=== PATIENT | male | born 1935 | race Caucasian/White ===

== ENCOUNTER → 2016-03-16 | Outpatient (REF) | payer MEDICARE ==
[~2016-03-16] MED LIST: ALLO10TA PO; ASPI1TAB PO; CEPH500C PO; DOXY10CA PO; FLOM5CAP PO; HUMA75VL SC; INSUHUMDS SC; LASI20TA PO; LISI40TAB PO; METO50TA2 PO; ONGL1TAB9 PO; PRED20TA PO
[2016-03-16 15:50] LABS: CREATININE FOR GFR 1.89 MG/DL (0.70-1.30); GLOMERULAR FILTRATION RATE 36.6 (>35); POTASSIUM SERUM 4.7 MEQ/L (3.5-5.1)
== END ==
LOC: M SFHCLACO 09:27
PROVIDERS: ATTEND Physician Assistant
DX: E11.40 Type 2 diabetes mellitus with diabetic neuropathy, unspecified (principal); E11.22 Type 2 diabetes mellitus with diabetic chronic kidney disease; N18.3 Chronic kidney disease, stage 3 (moderate); I12.9 Hypertensive chronic kidney disease with stage 1 through stage 4 chronic kidney disease, or unspecified chronic kidney disease

== ENCOUNTER 2016-03-29 10:39 | Inpatient (IN) | payer MEDICARE ==
[~2016-03-29] VITALS: Ht 172.7 cm; Wt 108.0 kg
[2016-03-29 12:29] LABS: CALCIUM LEVEL 9.2 MG/DL (8.8-10.2); CREATININE FOR GFR 1.86 MG/DL (0.70-1.30); GLOMERULAR FILTRATION RATE 37.3 (>35); POTASSIUM SERUM 4.5 MEQ/L (3.5-5.1); URIC ACID 9.3 MG/DL (3.5-7.2)
--- NOTE | 2016-03-29 12:46 | REP ---
Left upper extremity duplex Doppler venous ultrasound. Real time compression and duplex Doppler evaluation of the left upper extremity deep venous system is performed. The left subclavian, jugular, axillary, brachial, basilic and cephalic veins are fully compressible where accessible with transducer pressure, and demonstrate no intraluminal thrombus and normal venous waveforms. There is no evidence of deep venous thrombosis. Impression: No evidence of deep venous thrombosis of the left upper extremity deep vein system. Signed by Tres Hall MD 03/29/2016 12:38 P
[2016-03-29 12:47] LABS: BASO # 0.2 K/mm3 (0.0-0.2); BASO % 1.1 % (0.0-1.0); EOS # 0.1 K/mm3 (0.0-0.50); EOS % 0.8 % (0.0-3.0); LARGE UNSTAINED CELL # 0.2 K/mm3 (0.0-0.4); LARGE UNSTAINED CELL % 1.1 % (0.0-4.0); LYMPH # 1.8 K/mm3 (1.5-4.5); LYMPH % 9.5 % (24.0-44.0); MEAN CORPUSCULAR HEMOGLOBIN 30.7 pg (27.0-33.0); MEAN CORPUSCULAR HGB CONC 33.5 g/dl (32.0-36.5); MEAN CORPUSCULAR VOLUME 91.8 fl (80.0-96.0); MONO # 1.3 K/mm3 (0.0-0.8); MONO % 7.7 % (0.0-5.0); NEUTROPHILS # 13.4 K/mm3 (1.8-7.7); NEUTROPHILS % 79.8 % (36.0-66.0); PLATELET COUNT, AUTOMATED 381 k/mm3 (150-450); RED CELL DISTRIBUTION WIDTH 13.7 % (11.5-14.5); WHITE BLOOD COUNT 16.8 K/mm3 (4.0-10.0)
[2016-03-29] MEDS ORDERED: CEFTAROLINE FOSAMIL 600 MG VIAL (TEFLARO) As Ordered ONE (12:58)
[2016-03-29] MEDS ORDERED: CEPH500C PO (13:10)
[2016-03-29] MEDS ORDERED: LASI20TA PO (13:12)
[2016-03-29] MEDS ORDERED: ASPI1TAB PO (13:12)
[2016-03-29] MEDS ORDERED: LISI40TAB PO (13:12)
[2016-03-29] MEDS ORDERED: FLOM5CAP PO (13:12)
[2016-03-29] MEDS ORDERED: METO50TA2 PO (13:12)
[2016-03-29] MEDS ORDERED: ONGL1TAB9 PO (13:12)
[2016-03-29] MEDS ORDERED: INSUHUMDS SC (13:14)
[2016-03-29] MEDS ORDERED: HUMA75VL SC (13:14)
[2016-03-29 13:40] LABS: ERYTHROCYTE SEDIMENTATION RATE 107 mm/hr (0-20)
--- NOTE | 2016-03-29 14:05 | REP ---
LEFT HAND SERIES: Four views. HISTORY: Infection, soft tissue swelling. No comparison radiographs. FINDINGS: Four views of the left hand demonstrate diffuse soft tissue swelling of the wrist, metacarpal region, and digits. No soft tissue gas is seen. There is vascular calcification in the distal radial artery at the wrist. 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 IMPRESSION: Diffuse marked soft tissue swelling. No soft tissue gas, opaque foreign body, or fracture. No acute bony abnormality. Signed by Alex Bonilla MD 03/29/2016 03:19 P
[2016-03-29] MEDS ORDERED: ONDANSETRON 4MG/2ML VIAL (J2405) IV PRN (14:30)
[2016-03-29] MEDS ORDERED: DEXTROSE 50% 50 ML SYRINGE IV PRN (15:00)
[2016-03-29] MEDS ORDERED: GLUCAGON FOR INJ 1 MG VIAL (J1610) SC PRN (15:00)
[2016-03-29] MEDS ORDERED: GLUCOSE 4 GM CHEW TABLET PO PRN (15:00)
--- NOTE | 2016-03-29 15:23 | HPE ---
DATE OF ADMISSION: 03/29/2016 PRIMARY CARE PROVIDER: Natalie Arnold NP CHIEF COMPLAINT: Left hand swelling. HISTORY OF PRESENT ILLNESS: The patient is an 80-year-old left-handed male who tells me that over the last three weeks he has had progressive worsening swelling of his left hand. He did inform his primary care provider of this and she did start him on cephalexin, however, he has not noted any significant improvement over the several days of being on that medication, denies fevers, chills, sick contacts, trauma. He denies any change in exposures or activities. He does tell me that he does have a bump on the medial aspect of his left wrist, but otherwise there have been no other changes. He denies any previous episodes related to this. He denies any tick exposures or being outdoors significantly. He has not history of urticaria or angioedema. He is on an angiotensin-converting enzyme (REESE) inhibitor but has been on this for many years. Otherwise, he is in his usual state of elan. He complains of this pain with decreased range of motion secondary to significant swelling. 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 Hypertension. Benign prostatic hypertrophy (BPH). PAST SURGICAL HISTORY: None. SOCIAL HISTORY: The patient denies smoking, alcohol or illicit drug use. He lives alone. He is retired. He tells me that he does not use his left hand for any repetitive activities. HOME MEDICATIONS: - cephalexin 500 mg by mouth twice a day - lispro 75/25 27 units twice a day - lisinopril 40 mg daily - Onglyza 5 mg daily - aspirin 81 mg daily - Lasix 20 mg daily - lispro 27 units twice a day - metoprolol tartrate 50 mg daily - tamsulosin 0.4 mg daily FAMILY HISTORY: Noncontributory. REVIEW OF SYSTEMS: Negative, other than HPI. ALLERGIES: No known drug allergies. PHYSICAL EXAMINATION: Blood pressure 133/69, pulse 72, respiratory rate 18, temperature 97.2, O2 saturation 98% on room air. GENERAL: He is a very pleasant elderly man sitting in a chair. He is in no distress whatsoever. HEENT: Cranial nerves II through XII are grossly intact. He has moist mucous membranes. No elevation of his central venous pressure (CVP). CARDIOVASCULAR: S1, S2, regular. RESPIRATORY: Clear. ABDOMEN: Obese. EXTREMITIES: There is no peripheral edema in his right upper extremity or bilateral lower extremities, however, his left hand is grossly edematous. There appears to be soft rubbery 1 cm x 0.50 cm mildly mobile lateral ventral aspect of the wrist, possibly cystic in nature. Otherwise, 2+ edema to the hand. No erythema, warmth. There is tenderness, decreased range of motion secondary to pain. The patient has good pulses. LABORATORY STUDIES: WBC 16.8, hemoglobin 13.4, hematocrit 39.9, platelet count 381. Erythrocyte sedimentation rate 107. Chemistry panel: Sodium 141, potassium 4.5, chloride 106, bicarbonate 23, BUN 33, creatinine 1.8, approximately his baseline. CRP 18.1. Lyme IgM is pending. Blood culture is currently pending. The patient did have a hand x-ray that revealed diffuse marked soft tissue swelling. No soft tissue gas, opaque foreign bodies or fracture. No acute bony abnormality. The patient also did have a duplex ultrasound of the left lower extremity that revealed no evidence of deep venous thrombosis (DVT). ASSESSMENT AND PLAN: This is an 80-year-old man with slowly progressing edema to the left hand for the last three weeks. PROBLEM LIST: 1. Left hand edema. The etiology remains unclear. I am less suspicious for an infectious etiology despite the patient's leukocytosis. There is no warmth and the clinical course is not suggestive of this either. I am more interested in a ganglion cyst obstructing lymphatic flow versus some other pathology. I have the patient seen in consultation by orthopedic surgery. Will check MRI with and without contrast of the hand and wrist. Edema is pitting in nature. There is no evidence of DVT. It does not appear to be angioedema, however, for the time being I will withhold the patient's lisinopril. I will empirically cover him with antibiotics while we await culture data. He has not received Methicillin-resistant Staphylococcus aureus (MRSA) coverage and as such he has been started on ceftaroline in the ER, which I will continue. We will keep the hand elevated. 2. Hypertension. The patient will be continued on his Lasix, metoprolol. We are holding his lisinopril. 3. Benign prostatic hypertrophy (BPH). The patient is on Flomax. 4. Type 2 diabetes. The patient is on insulin. Will be checking fingersticks and sliding scale. He is on aspirin. 5. DVT prophylaxis. The patient will be on heparin. DISPOSITION: The patient admitted to the medical-surgical floor to Dr. Bateman's service who will continue following the patient at 7:00 a.m. tomorrow.
[2016-03-29 16:59] VITALS: BP 124/69
--- NOTE | 2016-03-29 17:01 | EDDOCDS ---
Nurse's Notes [facility] Name: Javan Park Age: 80 yrs Sex: Male : 1935 Arrival Date: 03/29/2016 Time: 10:39 Bed MRI Private MD: Natalie Pop PA-C Diagnosis: Cellulitis of left upper limb Presentation: 03/29 10:42 Presenting complaint: Patient states: Pt presents with left hand swelling x 2 weeks saw dls PMD got a shot not improving. Adult Sepsis Screening: The patient does not have new or worsening altered mentation. Patient's respiratory rate is less than 22. Systolic blood pressure is greater than 100. Patient has a qSOFA score of 0- Negative Sepsis Screen. Suicide/Homicide risk assessment- the patient denies having any suicidal and/or homicidal ideations and does not present with any other emotional, behavioral or mental health complaints. Status: Patient is not a litigation services manager or dependent. Transition of care: patient was not received from another setting of care. 10:42 Acuity: PATRICIA Level 3 dls 10:42 Method Of Arrival: Walkin/Carried/Asstd dls Triage Assessment: 10:44 General: Appears in no apparent distress, well developed, Behavior is cooperative. dls Pain: Pain currently is 8 out of 10 on a pain scale. Historical: - Allergies: no known allergies; - Home Meds: 1. cephalexin 500 mg Oral tab 1 tab every 12 hours on day 3 2. tamsulosin 0.4 mg oral cp24 1 cap once daily 3. lisinopril 40 mg Oral tab 1 tab once daily 4. Lasix 20 mg Oral tab 1 tab once daily 5. metoprolol tartrate 50 mg Oral tab once daily 6. Onglyza 5 mg oral tab 1 tab once daily 7. Humalog Mix 75-25 Sub-Q 20 unit daily 8. humalog 100 units/ml 20 units twice daily - PMHx: Diabetes - NIDDM: controlled; Hypertension; BPH; - PSHx: none; - Social history: Smoking status: Patient/guardian denies using No barriers to communication noted, The patient speaks fluent Romansh. - Family history: Not pertinent. - : The pt / caregiver states he / she is not on anticoagulants. Home medication list is obtained from the patient. - Exposure Risk Screening:: None identified. Screenin:11 Screening information is obtained from the patient. Fall risk: No risks identified. kr3 Assistance ADL's: requires no assistance with activities of daily living. Abuse/DV Screen: The patient / caregiver reports he/she is: not in a situation that causes fear, pain or injury. Nutritional screening: On diabetic diet. Advance Directives: Currently, there is no health care proxy. There is no active DNR order. There is no Power of Ore Digger. home support is adequate. Assessment: 11:53 Reassessment: Patient appears in no apparent distress at this time. Pain: Location: kr3 left hand Pain currently is 8 out of 10 on a pain scale. Neurological: Level of Consciousness is awake, alert. Respiratory: Respiratory effort is even, unlabored. Derm: Swollen area noted on left hand. Musculoskeletal: Range of motion limited in left hand. 12:30 Reassessment: patient in UL. kr3 13:09 Reassessment: Patient appears in no apparent distress at this time. speaking with kr3 provider Dayna. 14:09 Reassessment: Patient appears in no apparent distress at this time. Reassessment: aware kr3 plan is for MRI. General: Behavior is cooperative. 15:30 Reassessment: patient remains in MRI. kr3 16:58 Reassessment: returns from MRI. No change in status. pain and swelling left hand with kr3 minimal ROM digits left hand. Respiratory: Respiratory effort is even, unlabored. 16:58 General: Appears returned from MRI left hand remains swollen and painful 6/10. sl jmk intact to right upper ext. admitted.. Vital Signs: 10:40 BP 133 / 69; Pulse 72; Resp 18 S; Temp 97.2(O); Pulse Ox 98% on R/A; Weight 111.13 kg dd6 (R); Height 5 ft. 8 in. (172.72 cm) (R); 14:48 BP 119 / 66; Pulse 62; Resp 16; Temp 98(O); Pulse Ox 98% on R/A; Pain 6/10; kr3 16:57 BP 124 / 69; Pulse 90; Resp 16; Temp 97.3; Pulse Ox 98% on R/A; jmk 10:40 Body Mass Index 37.25 (111.13 kg, 172.72 cm) dd6 Vitals: 10:40 Log In Time: March 29, 2016 at 10:38. dd6 ED Course: 10:40 Patient visited by Ramez Arroyo PCA. dd6 10:40 Natalie Pop is Private Physician. dd6 10:40 Patient moved to Waiting dd6 10:41 Patient moved to Pre RCE dd6 10:43 Triage Initiated dls 10:45 Patient moved to Triage 1 dls 11:23 Alex Fofana PA is PHCP. mo1 11:23 Francisco Danielson MD is Attending Physician. mo1 11:39 Patient visited by Alex Fofana PA. mo1 11:40 Patient moved to I6 / 28 ar3 11:45 Patient visited by Alex Fofana PA. mo1 11:52 Lyme Disease Antibodies Sent. kr3 11:52 Uric Acid Sent. kr3 11:52 CRP Sent. kr3 11:52 ESR Sent. kr3 11:52 BMP Sent. kr3 11:52 CBC with Diff Sent. kr3 11:52 -Blood Culture Sent. kr3 11:52 Inserted saline lock: 20 gauge in right forearm and blood collected. The patient mauri tolerated the procedure well. 12:34 BLOOD CULTURES Sent. jam1 12:34 BLOOD CULTURES Sent. jam1 13:01 Upper Extremity R/O DVT Returned. EDMS 13:08 Patient visited by Coreen Canada RN. kr3 13:12 The patient / caregiver is instructed regarding the plan of care and ED course. Patient mauri has correct armband on for positive identification. Bed in low position. Call light in reach. Side rails up X 1. 13:16 [facility] Payment Agreement was scanned into [employer] and attached to record. jp5 13:24 Poonam Abreu chef's assistant. nq 13:40 Patient visited by Coreen Canada RN. kr3 13:51 Patient name changed from Javan\S\\S\Vivian\S\ to Javan\S\ \S\Vivian. EDMS 14:16 Hand, Complete Returned. EDMS 14:20 Poonam Abreu is Hospitalizing Provider. mo1 15:17 Patient moved to MRI kr3 16:58 No procedures done that require assistance. kr3 Administered Medications: 13:08 Drug: NS 0.9% 1000 ml [sodium chloride 0.9 % intravenous solution] Route: IV; Rate: kr3 bolus; Site: right forearm; 15:15 Follow up: IV Status: Completed infusion; IV Intake: 500ml kr3 13:08 Drug: Ceftaroline Fosamil 600 mg [ceftaroline fosamil 600 mg intravenous solution] kr3 Route: IV; Rate: bolus; Infused Over: 30 mins; Site: right forearm; 13:40 Follow up: IV Status: Completed infusion kr3 Intake: 15:15 IV: 500.00ml; Total: 500.00ml. kr3 Order Results: Lab Order: CBC with Diff; SPEC'M 03/29/16 11:49 Test: WHITE BLOOD COUNT; Value: 16.8; Range: 4.0-10.0; Abnormal: Above high normal; Units: K/mm3; Status: F Test: RED BLOOD COUNT; Value: 4.35; Range: 4.30-6.10; Units: M/mm3; Status: F Test: HEMOGLOBIN; Value: 13.4; Range: 14.0-18.0; Abnormal: Below low normal; Units: g/dl; Status: F Test: HEMATOCRIT; Value: 39.9; Range: 42.0-52.0; Abnormal: Below low normal; Units: %; Status: F Test: MEAN CORPUSCULAR VOLUME; Value: 91.8; Range: 80.0-96.0; Units: fl; Status: F Test: MEAN CORPUSCULAR HEMOGLOBIN; Value: 30.7; Range: 27.0-33.0; Units: pg; Status: F Test: MEAN CORPUSCULAR HGB CONC; Value: 33.5; Range: 32.0-36.5; Units: g/dl; Status: F Test: RED CELL DISTRIBUTION WIDTH; Value: 13.7; Range: 11.5-14.5; Units: %; Status: F Test: PLATELET COUNT, AUTOMATED; Value: 381; Range: 150-450; Units: k/mm3; Status: F Test: NEUTROPHILS %; Value: 79.8; Range: 36.0-66.0; Abnormal: Above high normal; Units: %; Status: F Test: LYMPH %; Value: 9.5; Range: 24.0-44.0; Abnormal: Below low normal; Units: %; Status: F Test: MONO %; Value: 7.7; Range: 0.0-5.0; Abnormal: Above high normal; Units: %; Status: F Test: EOS %; Value: 0.8; Range: 0.0-3.0; Units: %; Status: F Test: BASO %; Value: 1.1; Range: 0.0-1.0; Abnormal: Above high normal; Units: %; Status: F Test: LARGE UNSTAINED CELL %; Value: 1.1; Range: 0.0-4.0; Units: %; Status: F Test: NEUTROPHILS #; Value: 13.4; Range: 1.8-7.7; Abnormal: Above high normal; Units: K/mm3; Status: F Test: LYMPH #; Value: 1.8; Range: 1.5-4.5; Units: K/mm3; Status: F Test: MONO #; Value: 1.3; Range: 0.0-0.8; Abnormal: Above high normal; Units: K/mm3; Status: F Test: EOS #; Value: 0.1; Range: 0.0-0.50; Units: K/mm3; Status: F Test: BASO #; Value: 0.2; Range: 0.0-0.2; Units: K/mm3; Status: F Test: LARGE UNSTAINED CELL #; Value: 0.2; Range: 0.0-0.4; Units: K/mm3; Status: F Lab Order: [facility] 03/29/16 11:49 Test: GLUCOSE, FASTING; Value: 85; Range: 83-110; Units: MG/DL; Status: F Test: BLOOD UREA NITROGEN; Value: 33; Range: 7-18; Abnormal: Above high normal; Units: MG/DL; Status: F Test: CREATININE FOR GFR; Value: 1.86; Range: 0.70-1.30; Abnormal: Above high normal; Units: MG/DL; Status: F Test: GLOMERULAR FILTRATION RATE; Value: 37.3; Range: >35; Status: F Test: SODIUM LEVEL; Value: 141; Range: 136-145; Units: MEQ/L; Status: F Test: POTASSIUM SERUM; Value: 4.5; Range: 3.5-5.1; Units: MEQ/L; Status: F Test: CHLORIDE LEVEL; Value: 106; Range: 98-107; Units: MEQ/L; Status: F Test: CARBON DIOXIDE LEVEL; Value: 23; Range: 21-32; Units: MEQ/L; Status: F Test: ANION GAP; Value: 12; Range: 8-16; Units: MEQ/L; Status: F Test: CALCIUM LEVEL; Value: 9.2; Range: 8.8-10.2; Units: MG/DL; Status: F Test Note: ; Units are mL/min/1.73 m2 Chronic Kidney Disease Staging per NKF: Stage I & II GFR >=60 Normal to Mildly Decreased Stage III GFR 30-59 Moderately Decreased Stage IV GFR 15-29 Severely Decreased Stage V GFR <15 Very Little GFR Left ESRD GFR <15 on PAMPHLET DISTRIBUTOR Lab Order: ESR; SPEC'M 03/29/16 11:49 Test: ERYTHROCYTE SEDIMENTATION RATE; Value: 107; Range: 0-20; Abnormal: Above high normal; Units: mm/hr; Status: F Lab Order: CRP; SPEC'M 03/29/16 11:49 Test: C REACTIVE PROTEIN QUANTITATIV; Value: 18.10; Range: 0.00-0.30; Abnormal: Above high normal; Units: MG/DL; Status: F Lab Order: Uric Acid; SPEC'M 03/29/16 11:49 Test: URIC ACID; Value: 9.3; Range: 3.5-7.2; Abnormal: Above high normal; Units: MG/DL; Status: F Radiology Order: Hand, Complete Test: Hand, Complete REASON FOR EXAMINATION: infection/ STS; LEFT HAND SERIES: Four views.; ; HISTORY: Infection, soft tissue swelling.; ; No comparison radiographs.; ; FINDINGS: Four views of the left hand demonstrate diffuse soft tissue swelling; of the wrist, metacarpal region, and digits. No soft tissue gas is seen. There; is vascular calcification in the distal radial artery at the wrist. 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 No soft tissue gas, opaque foreign body, or; fracture. No acute bony abnormality.; ; ; Signed by; Alex Bonilla MD 03/29/2016 03:19 P; Radiology Order: US Upper Extremity R/O DVT Test: US Upper Extremity R/O DVT REASON FOR EXAMINATION: swelling; Left upper extremity duplex Doppler venous ultrasound.; ; Real time compression and duplex Doppler evaluation of the left upper extremity; deep venous system is performed. The left subclavian, jugular, axillary,; brachial, basilic and cephalic veins are fully compressible where accessible with; transducer pressure, and demonstrate no intraluminal thrombus and normal venous; waveforms. There is no evidence of deep venous thrombosis.; ; Impression:; ; No evidence of deep venous thrombosis of the left upper extremity deep vein; system.; ; ; Signed by; Tres Hall MD 03/29/2016 12:38 P; Outcome: 13:09 Ultrasound Study completed. kr3 14:20 Decision to Hospitalize by Provider. [email or web address] 15:49 Admission hand-off: Report Faxed Fax receipt verified by police department secretary. christ 16:58 Discharge Assessment: patient administered narcotics - no. The following High Risk kr3 Discharge criteria are identified: None. Admitted to Med/Surg accompanied by tech, via wheelchair, with chart. Condition: stable. Property :Personal belongings accompany Pt. 17:00 Patient left the ED. christ Signatures: Dispatcher [employer] EDMS Vero Arguelles RN Yonny LaguerreRN Yady Soto RN Tameka Parra, PHOTOGRAPH MOUNTER PHOTOGRAPH MOUNTER jam1 Coreen Canada,RN RN kr3 Ramez Arroyo, PHOTOGRAPH MOUNTER PHOTOGRAPH MOUNTER dd6 Beverly Amaro, PHOTOGRAPH MOUNTER PHOTOGRAPH MOUNTER ar3 Poonam Abreu Michael, PA PA mo1 Onesimo Lorenzo jp5 Corrections: (The following items were deleted from the chart) 10:57 10:44 Home Meds: metformin Oral; dls jatinder MTDD
--- NOTE | 2016-03-29 17:01 | EDDOCDS ---
Physician Documentation [facility] Name: Javan Park Age: 80 yrs Sex: Male : 1935 Arrival Date: 03/29/2016 Time: 10:39 Bed MRI Private MD: Natalie Pop PA-C Disposition: 03/29/16 14:20 Hospitalization ordered by Poonam Abreu for Inpatient Admission. Preliminary diagnosis is Cellulitis of left upper limb. - Bed requested for 4 [place]. - Status is Inpatient Admission. [place] - Condition is Stable. - Problem is new. - Symptoms are unchanged. Historical: - Allergies: no known allergies; - Home Meds: 1. cephalexin 500 mg Oral tab 1 tab every 12 hours on day 3 2. tamsulosin 0.4 mg oral cp24 1 cap once daily 3. lisinopril 40 mg Oral tab 1 tab once daily 4. Lasix 20 mg Oral tab 1 tab once daily 5. metoprolol tartrate 50 mg Oral tab once daily 6. Onglyza 5 mg oral tab 1 tab once daily 7. Humalog Mix 75-25 Sub-Q 20 unit daily 8. humalog 100 units/ml 20 units twice daily - PMHx: Diabetes - NIDDM: controlled; Hypertension; BPH; - PSHx: none; - Social history: Smoking status: Patient/guardian denies using No barriers to communication noted, The patient speaks fluent French. - Family history: Not pertinent. - : The pt / caregiver states he / she is not on anticoagulants. Home medication list is obtained from the patient. - Exposure Risk Screening:: None identified. Vital Signs: 03/29 10:40 BP 133 / 69; Pulse 72; Resp 18 S; Temp 97.2(O); Pulse Ox 98% on R/A; Weight 111.13 kg / dd6 245 lbs (R); Height 5 ft. 8 in. (172.72 cm) (R); 14:48 BP 119 / 66; Pulse 62; Resp 16; Temp 98(O); Pulse Ox 98% on R/A; Pain 6/10; kr3 16:57 BP 124 / 69; Pulse 90; Resp 16; Temp 97.3; Pulse Ox 98% on R/A; jmk 10:40 Body Mass Index 37.25 (111.13 kg, 172.72 cm) dd6 MDM: 11:41 IV Saline Lock ordered. mo1 11:41 -Blood Culture (Adults Only), peripheral from different site, or from device/port/PICC mo1 etc. if present ordered. 11:42 -Blood Culture (Adults Only), peripheral from different site, or from device/port/PICC ar3 etc. if present complete. 11:42 CBC with Diff Ordered. EDMS 11:42 BMP Ordered. EDMS 11:42 ESR Ordered. EDMS 11:42 CRP Ordered. EDMS 11:42 Uric Acid Ordered. EDMS 11:42 Lyme Disease Antibodies Ordered. EDMS 11:42 -Blood Culture Ordered. EDMS 11:43 Hand, Complete Ordered. EDMS 11:43 BLOOD CULTURES Ordered. EDMS 11:47 US Upper Extremity R/O DVT Ordered. EDMS 11:57 BLOOD CULTURES Ordered. EDMS 12:40 Uric Acid Reviewed. mo1 12:41 CRP Reviewed. mo1 12:41 BMP Reviewed. mo1 12:53 CBC with Diff Reviewed. mo1 12:54 NS 0.9% 1000 ml IV at bolus once ordered. mo1 12:54 Ceftaroline Fosamil 600 mg IV at bolus once over 30 mins; reconstitute with 20mL NS or mo1 SW, then dilulte in 50mL of NS, D5W or LR ordered. 12:54 BED REQUEST+ADM ordered. EDMS 13:16 [facility] Payment Agreement was scanned into [employer] and attached to record. jp5 13:16 Financial registration complete. jp5 13:22 US Upper Extremity R/O DVT Reviewed. mo1 13:48 CBC with Diff Reviewed. mo1 13:48 ESR Reviewed. mo1 13:50 MRI Screening Tool - Place on chart, inform RN ordered. mo1 13:50 [facility] Pole Framer Machine Order ordered. mo1 14:09 MRI Screening Tool - Place on chart, inform RN complete. kr3 14:27 MRI WRIST WITHOUT FOL BY WITH Ordered. EDMS 14:27 MRI Hand WITHOUT FOL BY WITH Ordered. EDMS 14:36 Admission / Observation Status ordered. EDMS 14:36 CONSISTENT CARBOHYDRATES ordered. EDMS 14:37 URINALYSIS Ordered. EDMS 14:41 ANTI-NEUTROPHIL CYTOPLASMIC AB Ordered. EDMS Administered Medications: 13:08 Drug: NS 0.9% 1000 ml [sodium chloride 0.9 % intravenous solution] Route: IV; Rate: kr3 bolus; Site: right forearm; 15:15 Follow up: IV Status: Completed infusion; IV Intake: 500ml kr3 13:08 Drug: Ceftaroline Fosamil 600 mg [ceftaroline fosamil 600 mg intravenous solution] kr3 Route: IV; Rate: bolus; Infused Over: 30 mins; Site: right forearm; 13:40 Follow up: IV Status: Completed infusion kr3 Signatures: Dispatcher [employer] EDMS Vero Arguelles RN RN Tracy Zelaya RN RN Yonny Scott,RN RN Yady Ortega RN RN dls Coreen CanadaRN RN kr3 Beverly Amaro, ADELINE COAL TRAM DRIVER ar3 Alex Fofana PA PA mo1 Onesimo Lorenzo jp5 The chart was reviewed and I authenticate all verbal orders and agree with the evaluation and treatment provided.Corrections: (The following items were deleted from the chart) 10:57 10:44 Home Meds: metformin Oral; dls jatinder 13:49 13:44 [facility] Machine Order ordered. mo1 mo1 14:33 14:05 MRI Hand WITHOUT FOL BY WITH ordered. EDMS EDMS 14:41 14:35 ANTI-NEUTROPHIL CYTOPLASMIC AB ordered. EDMS EDMS Attachments: 13:16 [facility] Payment Agreement jp5 MTDD
[2016-03-29 17:05] VITALS: BP 135/80
[2016-03-29 17:16] VITALS: BP 173/73
[2016-03-29] MEDS: PERCOCET 5MG/325MG TAB PO PRN (17:52)
--- NOTE | 2016-03-29 17:57 | REP ---
MRI LEFT HAND AND WRIST WITHOUT AND WITH CONTRAST: 03/29/2016: Comparison: Left hand x-ray today. Clinical history: Marked swelling about the hand, evaluate for abscess versus cellulitis. Technique: Axial T1, T2 STIR; coronal T1 and T2 STIR with sagittal T1 and T2 STIR sequences provided. Following infusion of 11.5 mL of ProHance (half-dose given for GFR less than 60 but greater than 30.) Axial and coronal and sagittal fat suppressed T1 sequences were then provided. Prominent subcutaneous edema and soft tissue swelling over the dorsal aspect of the hand and to a lesser extent the palmar surface shows subcutaneous edema but not nearly as impressive. The bone marrow showed normal signal on T1 and STIR images in the distal radius and ulna, metacarpals, carpal bones, and the visible phalanges. The dorsal soft tissue swelling over the hand and wrist is notable for displacing superficially the flexor digitorum tendon about the distal head of the third metacarpal. The hypointense T1 and hyperintense T2 fluid there shows enhancement surrounding it and this suggests tenosynovitis and possible infected tenosynovitis. There is similar bright fluid in the subcutaneous tissues elsewhere with similar hypointense T1 and enhancing T2 tissues suggesting significant edema and cellulitis. I do not see a joint effusions about the carpal bones or the MCP joints. Just peripheral to be the flexor carpi radialis tendon, the volar aspect of the wrist is another T1 hypointense and T2 hyperintense focus suggesting a fluid collection. Similarly has some ill-defined enhancement around it and may reflect tenosynovitis or developing abscess. Flexor tendons and extensor tendons are otherwise grossly intact. Impression: 1. Extensive soft tissue swelling and cellulitis over the dorsal hand and wrist and to a lesser extent volar aspect of the wrist and base of the thumb with fluid collections showing some enhancement surrounding them along the dorsal aspect of the distal head of the third metacarpal and just radiad to the flexor carpi radialis tendon on the volar aspect of the wrist that may reflect small areas of tenosynovitis or developing abscess. 2. There is no definite evidence for osteomyelitis or joint effusion. Signed by Jj Zamora MD 03/29/2016 07:41 P
--- NOTE | 2016-03-29 18:31 | CR ---
DATE OF CONSULTATION: 03/29/2016 REASON FOR CONSULTATION: Dorsal hand swelling left. HISTORY OF PRESENT ILLNESS: He is an 80-year-old right-hand dominant, insulin-dependent diabetic male who had gradual onset of increasing soreness and swelling and some mild redness of the dorsum of the left hand over about a three-week period, to the point recently it was difficult for him to use his hand much because it was hard to bend his fingers because of the swelling, cannot pull his pants up and put a shirt on, or do fine motor activities with his left hand. He reported this to his physician chef assistant (PA) Natalie Pop, when he was seen down at the [facility] on Tuesday, and he was given an injection into his left buttock, and started on what sounds like Keflex 500 mg once a day over the weekend. It did not seem to help much. He presented to the emergency room this morning and was admitted by Dr. Abreu from the hospitalist service because of the hand swelling. An ultrasound of his left upper extremity did not reveal a deep venous thrombosis (DVT). Plain x-rays showed that there appeared to be some degenerative changes of the metacarpophalangeal (MCP) joint, especially of the long and index fingers of that hand, but also some marked degenerative changes elsewhere in the lesser joints distally. He has not been having any fevers or chills. No known injury that brought this on. He has had a history of gout in the past in his feet predominantly, and he has noted there is a bit of a cystic structure on the volar aspect of his wrist over the radial artery. It has been there predating this episode by about a year. It does not really bother him much, so he comes today to get this looked after. PAST MEDICAL HISTORY: Otherwise, is significant for: 1. Hypertension. 2. Insulin-dependent diabetes. 3. Benign prostatic hypertrophy. MEDICATIONS: - presently on Keflex 500 mg one pill twice a day; this is his third day - tamsulosin 0.4 daily - lisinopril 40 daily - Lasix 20 daily - metoprolol 50 mg daily - Onglyza 5 once a day - Humalog insulin PAST SURGICAL HISTORY: None. SOCIAL HISTORY: He does not smoke or drink alcohol excessively. Retired. He lives up in [place], up by the [facility] up on [address]. REVIEW OF SYSTEMS: Health survey is otherwise unremarkable. He is single, lives alone. PHYSICAL EXAMINATION: When I examine him, he is a pleasant, moderately obese male. VITAL SIGNS: His temperature is 97.4, pulse 84, blood pressure 173/73, respirations 16, oxygen saturation 95% on room air. HEENT: Exam is otherwise benign. MUSCULOSKELETAL: His left upper extremity has a significant amount of pitting edema on the dorsum of his hand, mainly on the dorsal radial side, with some tenderness to deep palpation at about the level of the MCP joints. There is some slight warmth and slight redness. No palpable fluctuance is noted. Volar aspect of his hand is relatively benign. There is a volar ganglion cyst over the radial artery. It is fairly large. Sensory testing is intact. Good capillary refill otherwise. Radiographs as described, showing some degenerative changes in his hand, especially at the MCP joints of the index and long finger. LABORATORY DATA: Showed a white count of 16.8, sed rate of 107, and a CRP of 18. BUN was 33, creatinine 1.6, electrolytes were normal. Glucose was 85. Uric acid elevated at 9.3, calcium 9.2. Hemoglobin was 39.9, and platelets of 381. IMAGING: Ultrasound of his left upper extremity did not reveal DVT. The MRI scan was just completed and we do not have the radiology reading back yet at this point. When I look at the films, especially on the sagittal view, there does appear to be some fluid possibly at the MCP joint, I believe it is the third MCP joint, associated with lots of soft tissue edema, but it is difficult; the MRI scan images are quite blurry and difficult to really interpret. I have to defer to the radiologist for official reading. IMPRESSION: My impression overall is dorsal hand swelling with some cellulitis, possible synovitis in the metacarpophalangeal (MCP) joints of that hand. Whether or not this is infectious versus gouty remains difficult to determine. We will try to get the official reading from the radiologist and proceed accordingly whether or not we need to aspirate one of the MCP joints to get a fluid sample for culture and microscopic evaluation. Otherwise, I agree with Dr. Abreu. I did discuss this with him. He has admitted him and placing on intravenous (IV) antibiotics. He will keep this hand elevated and follow his C-reactive protein (CRP) levels. Blood cultures have been obtained. He is placed on ceftaroline which I believe would be a good drug for this for the time being. I will continue to follow along and await the formal reading from the radiologist.
[2016-03-29] MEDS: HEPARIN SOD (PORCINE) 5000 UNITS/ML VIAL SC SCH (20:16)
[2016-03-29] MEDS ORDERED: HumaLOG INSULIN (NovoLOG) PER UNIT SC SCH ×2 (21:00)
[2016-03-29 22:00] VITALS: BP 130/71
[2016-03-30] MEDS: PERCOCET 5MG/325MG TAB PO PRN ×3 (00:07→20:55)
[2016-03-30] MEDS: CEFTAROLINE FOSAMIL 600 MG in D5W MINI-BAG PLUS 50 ML IV SCH ×2 (00:25→13:14)
[2016-03-30 06:00] VITALS: BP 143/67
[2016-03-30 06:11] LABS: MEAN CORPUSCULAR HEMOGLOBIN 30.8 pg (27.0-33.0); MEAN CORPUSCULAR HGB CONC 33.3 g/dl (32.0-36.5); MEAN CORPUSCULAR VOLUME 92.4 fl (80.0-96.0); RED CELL DISTRIBUTION WIDTH 13.7 % (11.5-14.5); WHITE BLOOD COUNT 10.2 K/mm3 (4.0-10.0)
[2016-03-30 06:19] LABS: CALCIUM LEVEL 8.7 MG/DL (8.8-10.2); CREATININE FOR GFR 1.69 MG/DL (0.70-1.30); GLOMERULAR FILTRATION RATE 41.7 (>35); POTASSIUM SERUM 4.3 MEQ/L (3.5-5.1)
[2016-03-30] MEDS: HumaLOG INSULIN (NovoLOG) PER UNIT SC SCH ×3 (08:35→18:10)
[2016-03-30] MEDS: ASPIRIN 81 MG ENTERIC TAB PO SCH (08:36)
[2016-03-30] MEDS: TAMSULOSIN 0.4 MG CAP PO SCH (08:36)
[2016-03-30] MEDS: FUROSEMIDE 20 MG TAB PO SCH (08:36)
[2016-03-30] MEDS: METOPROLOL TART 50 MG TAB PO SCH (08:38)
[2016-03-30] MEDS: HEPARIN SOD (PORCINE) 5000 UNITS/ML VIAL SC SCH ×2 (08:38→20:56)
[2016-03-30] MEDS: LEVEMIR (INSULIN DETEMIR) 1 UNITS/0.01ML SC SCH ×2 (11:05→20:56)
[2016-03-30 14:00] VITALS: BP 122/64
--- NOTE | 2016-03-30 14:57 | IPN ---
DATE: 03/30/2016 SUBJECTIVE: Patient is seen and examined in the room today. Patient stated his left hand swelling has shown significant improvement since the initiation of antibiotics. The redness also shows significant improvement. However, he still has some difficulty moving his left hand digits. No overnight events are reported. OBJECTIVE: VITAL SIGNS: Temperature 97.4, pulse 67, respirations 18, blood pressure 143/67, pulse oximetry 95% on room air. GENERAL: No sign of acute distress, alert and oriented times three. HEENT: Normocephalic, atraumatic. Extraocular motor grossly intact. CARDIOVASCULAR: Positive S1, S2, regular rate. LUNGS: Clear to auscultation. ABDOMEN: Obese, soft, nontender, nondistended. Bowel sounds present. EXTREMITIES: Positive swelling of the right distal upper extremity, photographer still to palpation, has difficulty moving the right hand especially the wrist joint. There is still some residual erythema distal to the left wrist. There is mild edema of the right hand. No lower extremity edema. No sign of cyanosis. LABORATORY DATA: WBC 10.2, hemoglobin 11.3, hematocrit 34, platelet count is 335, ESR is 106. Sodium is 141, potassium 4.3, chloride is 109, carbon dioxide is 21, BUN is 32, creatinine 1.69, GFR is 41.7, fasting glucose 174, calcium is 8.7, C-reactive protein 13.5. MICROBIOLOGY: Blood cultures negative after 24 hours. Hand MRI result shows extensive soft tissue swelling and cellulitis over the dorsal hand and wrist and to a lesser extent volar aspect of the wrist and base of the thumb with fluid collections showing some enhancement surrounding them along the dorsal aspect of the distal head of the third metacarpal and just radiad to the flexor carpi radialis tendon on the volar aspect of the wrist that may reflect small areas of tenosynovitis or developing abscess. ASSESSMENT AND PLAN: 1. Left hand cellulitis and synovitis. Patient's symptoms are improving with IV antibiotics. Patient is currently on IV Teflaro. MRI was performed and showed there could be a developing abscess. Orthopedic surgery team is consulted. We appreciate any recommendations. 2. Hypertension. Continue on Lasix, metoprolol. Lisinopril is on hold. 3. Benign prostatic hypertrophy, on Flomax. 4. Type 2 diabetes, on consistent-carbohydrate diet, insulin. 5. Deep vein thrombosis (DVT) prophylaxis. The patient is on heparin.
[2016-03-30 22:00] VITALS: BP 136/60
[2016-03-31] MEDS: CEFTAROLINE FOSAMIL 600 MG in D5W MINI-BAG PLUS 50 ML IV SCH ×2 (00:50→12:10)
[2016-03-31 06:00] VITALS: BP 137/70
[2016-03-31 06:31] LABS: MEAN CORPUSCULAR HEMOGLOBIN 30.6 pg (27.0-33.0); MEAN CORPUSCULAR HGB CONC 33.1 g/dl (32.0-36.5); MEAN CORPUSCULAR VOLUME 92.4 fl (80.0-96.0); RED CELL DISTRIBUTION WIDTH 12.8 % (11.5-14.5); WHITE BLOOD COUNT 9.4 K/mm3 (4.0-10.0)
[2016-03-31 06:53] LABS: CALCIUM LEVEL 8.9 MG/DL (8.8-10.2); CREATININE FOR GFR 1.72 MG/DL (0.70-1.30); GLOMERULAR FILTRATION RATE 40.8 (>35); POTASSIUM SERUM 4.3 MEQ/L (3.5-5.1)
[2016-03-31 08:00] VITALS: BP 108/67
[2016-03-31] MEDS: HumaLOG INSULIN (NovoLOG) PER UNIT SC SCH ×3 (08:13→17:45)
[2016-03-31] MEDS: TAMSULOSIN 0.4 MG CAP PO SCH (08:59)
[2016-03-31] MEDS ORDERED: PREVNAR 13 VACCINE SYRINGE (CPT CODE:90670) IM ONE (09:00)
[2016-03-31] MEDS: METOPROLOL TART 50 MG TAB PO SCH (09:00)
[2016-03-31] MEDS: FUROSEMIDE 20 MG TAB PO SCH (09:00)
[2016-03-31] MEDS: ASPIRIN 81 MG ENTERIC TAB PO SCH (09:00)
[2016-03-31] MEDS: HEPARIN SOD (PORCINE) 5000 UNITS/ML VIAL SC SCH ×2 (09:01→20:54)
[2016-03-31] MEDS: LEVEMIR (INSULIN DETEMIR) 1 UNITS/0.01ML SC SCH ×2 (09:01→20:55)
[2016-03-31] MEDS ORDERED: LIDOCAINE 1% MDV 20ML VIAL SC ONE (11:00)
[2016-03-31 13:15] LABS: CRYSTALS, BODY FLUID URIC ACID (NONE SEEN)
--- NOTE | 2016-03-31 13:30 | RO ---
DATE OF PROCEDURE: 03/31/2016 PREPROCEDURE DIAGNOSIS: Left timber hand metacarpophalangeal joint, rule out abscess. POSTPROCEDURE DIAGNOSIS: Left timber hand metacarpophalangeal joint, rule out abscess. PROCEDURE: Aspiration of left third metacarpophalangeal joint. SURGEON: Dr. Sofia Perdomo CLINIC MD ASSOCIATE: ANESTHESIA: Local. COMPLICATIONS: None. FINDINGS: Approximately 4 to 5 mL of milky white fluid was obtained from the joint and it was sent for gram stain, culture and sensitivity, and joint fluid analysis. DESCRIPTION OF PROCEDURE: After appropriate time out and consent had been obtained, dorsal aspect of his left hand was sterilely prepped with Betadine. 1% lidocaine was infiltrated into skin and directly over the palpable mass, I used a 22 gauge needle and aspirated about 2 to 3 mL of milky white fluid into a 10 mL syringe. It was placed in a green top and red top tube. He tolerated the procedure well and a band aid was applied. The specimens were sent to the lab.
[2016-03-31 14:00] VITALS: BP 129/68
[2016-03-31] MEDS: ALLOPURINOL 100 MG TAB PO SCH (16:24)
--- NOTE | 2016-03-31 17:12 | IPN ---
DATE: 03/31/2016 SUBJECTIVE: Patient is seen and examined in the room today. Patient stated his left hand swelling and redness has continue to improve with antibiotic treatment. Patient started to notice to have fluctuant lump formation at the back of the hand. Patient is being followed by physical therapy, occupational therapy and patient says treatment is helping him. No overnight events are reported. OBJECTIVE: VITAL SIGNS: Temperature 98.5, pulse 82, respirations 18, blood pressure 108/67, pulse oximetry 99% on room air. GENERAL: No sign of acute distress, alert and oriented times three. HEENT: Normocephalic, atraumatic. Extraocular motor grossly intact. CARDIOVASCULAR: Positive S1, S2, regular rate. LUNGS: Clear to auscultation bilaterally. ABDOMEN: Soft, nontender, nondistended. Bowel sounds present. No rebound or guarding. EXTREMITIES: Still have swelling and erythema of the left hand. picker tender to Palptation. Some fluctuation noted on the back of the left hand. No lower extremity edema. No sign of cyanosis. LABORATORY DATA: WBC 9.4, hemoglobin 11.5, hematocrit 34.8, platelet count is 335, ESR is 106. Sodium is 138, potassium 4.3, chloride is 107, carbon dioxide is 22, BUN is 31, creatinine 1.72, GFR is 40.8, fasting glucose 167, calcium is 8.9, C-reactive protein 10.3. MICROBIOLOGY: Blood cultures negative after 48 hours. ASSESSMENT AND PLAN: 1. Left hand swelling. Initially when patient presented to [facility] patient had a white count of 16.8. Patient had elevated MARKELL, erythrocyte sedimentation rate and CRP. Patient's started on Teflaro. Since initiation of antibiotics patient's swelling and erythema showed significant improvement. Patient will continue with antibiotic treatment. Patient started having fluctuant node. Orthopedic surgeon is planned for incision and drainage of the fluctuant node later the afternoon. Will follow with cultures with full analysis. 2. Hypertension. Lasix, metoprolol. Lisinopril is on hold due to acute kidney injury. 3. Acute kidney injury due to acute on chronic renal failure. At the baseline patient has creatinine of 1.63 in April 2015. On day of admission patient has a creatinine of 1.89. Patient's renal function shows slight improvement from 1.86 to 1.72. Encourage oral intake. 4. Benign prostatic hypertrophy, patient is on Flomax. 5. Type 2 diabetes, on consistent-carbohydrate diet, insulin sliding scale. 6. Deep vein thrombosis (DVT) prophylaxis. The patient is on heparin.
[2016-03-31] MEDS: PERCOCET 5MG/325MG TAB PO PRN (17:45)
--- NOTE | 2016-03-31 18:01 | EDDOCDS ---
Nurse's Notes [facility] Name: Javan Park Age: 80 yrs Sex: Male : 1935 Arrival Date: 03/29/2016 Time: 10:39 Bed MRI Private MD: Natalie Pop PA-C Diagnosis: Cellulitis of left upper limb Presentation: 03/29 10:42 Presenting complaint: Patient states: Pt presents with left hand swelling x 2 weeks saw dls PMD got a shot not improving. Adult Sepsis Screening: The patient does not have new or worsening altered mentation. Patient's respiratory rate is less than 22. Systolic blood pressure is greater than 100. Patient has a qSOFA score of 0- Negative Sepsis Screen. Suicide/Homicide risk assessment- the patient denies having any suicidal and/or homicidal ideations and does not present with any other emotional, behavioral or mental health complaints. Status: Patient is not a equipment services associate or dependent. Transition of care: patient was not received from another setting of care. 10:42 Acuity: PATRICIA Level 3 dls 10:42 Method Of Arrival: Walkin/Carried/Asstd dls Triage Assessment: 10:44 General: Appears in no apparent distress, well developed, Behavior is cooperative. dls Pain: Pain currently is 8 out of 10 on a pain scale. Historical: - Allergies: no known allergies; - Home Meds: 1. cephalexin 500 mg Oral tab 1 tab every 12 hours on day 3 2. tamsulosin 0.4 mg oral cp24 1 cap once daily 3. lisinopril 40 mg Oral tab 1 tab once daily 4. Lasix 20 mg Oral tab 1 tab once daily 5. metoprolol tartrate 50 mg Oral tab once daily 6. Onglyza 5 mg oral tab 1 tab once daily 7. Humalog Mix 75-25 Sub-Q 20 unit daily 8. humalog 100 units/ml 20 units twice daily - PMHx: Diabetes - NIDDM: controlled; Hypertension; BPH; - PSHx: none; - Social history: Smoking status: Patient/guardian denies using No barriers to communication noted, The patient speaks fluent Lithuanian. - Family history: Not pertinent. - : The pt / caregiver states he / she is not on anticoagulants. Home medication list is obtained from the patient. - Exposure Risk Screening:: None identified. Screenin:11 Screening information is obtained from the patient. Fall risk: No risks identified. kr3 Assistance ADL's: requires no assistance with activities of daily living. Abuse/DV Screen: The patient / caregiver reports he/she is: not in a situation that causes fear, pain or injury. Nutritional screening: On diabetic diet. Advance Directives: Currently, there is no health care proxy. There is no active DNR order. There is no Power of Fleet Assistant. home support is adequate. Assessment: 11:53 Reassessment: Patient appears in no apparent distress at this time. Pain: Location: kr3 left hand Pain currently is 8 out of 10 on a pain scale. Neurological: Level of Consciousness is awake, alert. Respiratory: Respiratory effort is even, unlabored. Derm: Swollen area noted on left hand. Musculoskeletal: Range of motion limited in left hand. 12:30 Reassessment: patient in UL. kr3 13:09 Reassessment: Patient appears in no apparent distress at this time. speaking with kr3 provider Dayna. 14:09 Reassessment: Patient appears in no apparent distress at this time. Reassessment: aware kr3 plan is for MRI. General: Behavior is cooperative. 15:30 Reassessment: patient remains in MRI. kr3 16:58 Reassessment: returns from MRI. No change in status. pain and swelling left hand with kr3 minimal ROM digits left hand. Respiratory: Respiratory effort is even, unlabored. 16:58 General: Appears returned from MRI left hand remains swollen and painful 6/10. sl jmk intact to right upper ext. admitted.. Vital Signs: 10:40 BP 133 / 69; Pulse 72; Resp 18 S; Temp 97.2(O); Pulse Ox 98% on R/A; Weight 111.13 kg dd6 (R); Height 5 ft. 8 in. (172.72 cm) (R); 14:48 BP 119 / 66; Pulse 62; Resp 16; Temp 98(O); Pulse Ox 98% on R/A; Pain 6/10; kr3 16:57 BP 124 / 69; Pulse 90; Resp 16; Temp 97.3; Pulse Ox 98% on R/A; jmk 10:40 Body Mass Index 37.25 (111.13 kg, 172.72 cm) dd6 Vitals: 10:40 Log In Time: March 29, 2016 at 10:38. dd6 ED Course: 10:40 Patient visited by Ramez Arroyo PCA. dd6 10:40 Natalie Pop is Private Physician. dd6 10:40 Patient moved to Waiting dd6 10:41 Patient moved to Pre RCE dd6 10:43 Triage Initiated dls 10:45 Patient moved to Triage 1 dls 11:23 Alex Fofana PA is PHCP. mo1 11:23 Francisco Danielson MD is Attending Physician. mo1 11:39 Patient visited by Alex Fofana PA. mo1 11:40 Patient moved to I6 / 28 ar3 11:45 Patient visited by Alex Fofana PA. mo1 11:52 Lyme Disease Antibodies Sent. kr3 11:52 Uric Acid Sent. kr3 11:52 CRP Sent. kr3 11:52 ESR Sent. kr3 11:52 BMP Sent. kr3 11:52 CBC with Diff Sent. kr3 11:52 -Blood Culture Sent. kr3 11:52 Inserted saline lock: 20 gauge in right forearm and blood collected. The patient mauri tolerated the procedure well. 12:34 BLOOD CULTURES Sent. jam1 12:34 BLOOD CULTURES Sent. jam1 13:01 Upper Extremity R/O DVT Returned. EDMS 13:08 Patient visited by Coreen Canada RN. kr3 13:12 The patient / caregiver is instructed regarding the plan of care and ED course. Patient mauri has correct armband on for positive identification. Bed in low position. Call light in reach. Side rails up X 1. 13:16 [facility] Payment Agreement was scanned into 2,10E+07 and attached to record. jp5 13:24 Poonam Abreu chemist. nq 13:40 Patient visited by Coreen Canada RN. kr3 13:51 Patient name changed from Javan\S\\S\Vivian\S\ to Javan\S\ \S\Vviian. EDMS 14:16 Hand, Complete Returned. EDMS 14:20 Poonam Abreu is Hospitalizing Provider. mo1 15:17 Patient moved to MRI kr3 16:58 No procedures done that require assistance. kr3 21:49 T-Sheet-- Draft Copy was scanned into 2,10E+07 and attached to record. klr Administered Medications: 13:08 Drug: NS 0.9% 1000 ml [sodium chloride 0.9 % intravenous solution] Route: IV; Rate: kr3 bolus; Site: right forearm; 15:15 Follow up: IV Status: Completed infusion; IV Intake: 500ml kr3 13:08 Drug: Ceftaroline Fosamil 600 mg [ceftaroline fosamil 600 mg intravenous solution] kr3 Route: IV; Rate: bolus; Infused Over: 30 mins; Site: right forearm; 13:40 Follow up: IV Status: Completed infusion kr3 Intake: 15:15 IV: 500.00ml; Total: 500.00ml. kr3 Order Results: Lab Order: CBC with Diff; SPEC'M 03/29/16 11:49 Test: WHITE BLOOD COUNT; Value: 16.8; Range: 4.0-10.0; Abnormal: Above high normal; Units: K/mm3; Status: F Test: RED BLOOD COUNT; Value: 4.35; Range: 4.30-6.10; Units: M/mm3; Status: F Test: HEMOGLOBIN; Value: 13.4; Range: 14.0-18.0; Abnormal: Below low normal; Units: g/dl; Status: F Test: HEMATOCRIT; Value: 39.9; Range: 42.0-52.0; Abnormal: Below low normal; Units: %; Status: F Test: MEAN CORPUSCULAR VOLUME; Value: 91.8; Range: 80.0-96.0; Units: fl; Status: F Test: MEAN CORPUSCULAR HEMOGLOBIN; Value: 30.7; Range: 27.0-33.0; Units: pg; Status: F Test: MEAN CORPUSCULAR HGB CONC; Value: 33.5; Range: 32.0-36.5; Units: g/dl; Status: F Test: RED CELL DISTRIBUTION WIDTH; Value: 13.7; Range: 11.5-14.5; Units: %; Status: F Test: PLATELET COUNT, AUTOMATED; Value: 381; Range: 150-450; Units: k/mm3; Status: F Test: NEUTROPHILS %; Value: 79.8; Range: 36.0-66.0; Abnormal: Above high normal; Units: %; Status: F Test: LYMPH %; Value: 9.5; Range: 24.0-44.0; Abnormal: Below low normal; Units: %; Status: F Test: MONO %; Value: 7.7; Range: 0.0-5.0; Abnormal: Above high normal; Units: %; Status: F Test: EOS %; Value: 0.8; Range: 0.0-3.0; Units: %; Status: F Test: BASO %; Value: 1.1; Range: 0.0-1.0; Abnormal: Above high normal; Units: %; Status: F Test: LARGE UNSTAINED CELL %; Value: 1.1; Range: 0.0-4.0; Units: %; Status: F Test: NEUTROPHILS #; Value: 13.4; Range: 1.8-7.7; Abnormal: Above high normal; Units: K/mm3; Status: F Test: LYMPH #; Value: 1.8; Range: 1.5-4.5; Units: K/mm3; Status: F Test: MONO #; Value: 1.3; Range: 0.0-0.8; Abnormal: Above high normal; Units: K/mm3; Status: F Test: EOS #; Value: 0.1; Range: 0.0-0.50; Units: K/mm3; Status: F Test: BASO #; Value: 0.2; Range: 0.0-0.2; Units: K/mm3; Status: F Test: LARGE UNSTAINED CELL #; Value: 0.2; Range: 0.0-0.4; Units: K/mm3; Status: F Lab Order: [facility]; SPEC'M 03/29/16 11:49 Test: GLUCOSE, FASTING; Value: 85; Range: 83-110; Units: MG/DL; Status: F Test: BLOOD UREA NITROGEN; Value: 33; Range: 7-18; Abnormal: Above high normal; Units: MG/DL; Status: F Test: CREATININE FOR GFR; Value: 1.86; Range: 0.70-1.30; Abnormal: Above high normal; Units: MG/DL; Status: F Test: GLOMERULAR FILTRATION RATE; Value: 37.3; Range: >35; Status: F Test: SODIUM LEVEL; Value: 141; Range: 136-145; Units: MEQ/L; Status: F Test: POTASSIUM SERUM; Value: 4.5; Range: 3.5-5.1; Units: MEQ/L; Status: F Test: CHLORIDE LEVEL; Value: 106; Range: 98-107; Units: MEQ/L; Status: F Test: CARBON DIOXIDE LEVEL; Value: 23; Range: 21-32; Units: MEQ/L; Status: F Test: ANION GAP; Value: 12; Range: 8-16; Units: MEQ/L; Status: F Test: CALCIUM LEVEL; Value: 9.2; Range: 8.8-10.2; Units: MG/DL; Status: F Test Note: ; Units are mL/min/1.73 m2 Chronic Kidney Disease Staging per NKF: Stage I & II GFR >=60 Normal to Mildly Decreased Stage III GFR 30-59 Moderately Decreased Stage IV GFR 15-29 Severely Decreased Stage V GFR <15 Very Little GFR Left ESRD GFR <15 on REGIONAL PSYCHIATRIC DIRECTOR Lab Order: ESR; SPEC' 03/29/16 11:49 Test: ERYTHROCYTE SEDIMENTATION RATE; Value: 107; Range: 0-20; Abnormal: Above high normal; Units: mm/hr; Status: F Lab Order: CRP; SPEC' 03/29/16 11:49 Test: C REACTIVE PROTEIN QUANTITATIV; Value: 18.10; Range: 0.00-0.30; Abnormal: Above high normal; Units: MG/DL; Status: F Lab Order: Uric Acid; SPEC' 03/29/16 11:49 Test: URIC ACID; Value: 9.3; Range: 3.5-7.2; Abnormal: Above high normal; Units: MG/DL; Status: F Radiology Order: Hand, Complete Test: Hand, Complete REASON FOR EXAMINATION: infection/ STS; LEFT HAND SERIES: Four views.; ; HISTORY: Infection, soft tissue swelling.; ; No comparison radiographs.; ; FINDINGS: Four views of the left hand demonstrate diffuse soft tissue swelling; of the wrist, metacarpal region, and digits. No soft tissue gas is seen. There; is vascular calcification in the distal radial artery at the wrist. 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 No soft tissue gas, opaque foreign body, or; fracture. No acute bony abnormality.; ; ; Signed by; Alex Bonilla MD 03/29/2016 03:19 P; Radiology Order: US Upper Extremity R/O DVT Test: US Upper Extremity R/O DVT REASON FOR EXAMINATION: swelling; Left upper extremity duplex Doppler venous ultrasound.; ; Real time compression and duplex Doppler evaluation of the left upper extremity; deep venous system is performed. The left subclavian, jugular, axillary,; brachial, basilic and cephalic veins are fully compressible where accessible with; transducer pressure, and demonstrate no intraluminal thrombus and normal venous; waveforms. There is no evidence of deep venous thrombosis.; ; Impression:; ; No evidence of deep venous thrombosis of the left upper extremity deep vein; system.; ; ; Signed by; Tres Hall MD 03/29/2016 12:38 P; Outcome: 13:09 Ultrasound Study completed. kr3 14:20 Decision to Hospitalize by Provider. mo1 15:49 Admission hand-off: Report Faxed Fax receipt verified by medication care manager. christ 16:58 Discharge Assessment: patient administered narcotics - no. The following High Risk [facility] Discharge criteria are identified: None. Admitted to Med/Surg accompanied by tech, via wheelchair, with chart. Condition: stable. Property :Personal belongings accompany Pt. 17:00 Patient left the ED. christ Signatures: Dispatcher [employer] EDMS Vero Arguelles RN RN kcs Knapp, Jean, RN RN jmk Scott, Debra, RN RN dls Murphy, Jane, TIRE SPECIALIST TIRE SPECIALIST jam1 Coreen Canada RN RN aysha3 Ramez Arroyo, TIRE SPECIALIST TIRE SPECIALIST dd6 Beverly Amaro, TIRE SPECIALIST TIRE SPECIALIST ar3 Poonam Abreu Michael, PA PA mo1 Onesimo Lorenzo Kathie klr Corrections: (The following items were deleted from the chart) 10:57 10:44 Home Meds: metformin Oral; jeff tobias Chart Complete MTDD
--- NOTE | 2016-03-31 18:01 | EDDOCDS ---
Physician Documentation [facility] Name: Javan Park Age: 80 yrs Sex: Male : 1935 Arrival Date: 03/29/2016 Time: 10:39 Bed MRI Private MD: Natalie Pop PA-C Disposition: 03/29/16 14:20 Hospitalization ordered by Poonam Abreu for Inpatient Admission. Preliminary diagnosis is Cellulitis of left upper limb. - Bed requested for 4 [place]. - Status is Inpatient Admission. tashik - Condition is Stable. - Problem is new. - Symptoms are unchanged. Historical: - Allergies: no known allergies; - Home Meds: 1. cephalexin 500 mg Oral tab 1 tab every 12 hours on day 3 2. tamsulosin 0.4 mg oral cp24 1 cap once daily 3. lisinopril 40 mg Oral tab 1 tab once daily 4. Lasix 20 mg Oral tab 1 tab once daily 5. metoprolol tartrate 50 mg Oral tab once daily 6. Onglyza 5 mg oral tab 1 tab once daily 7. Humalog Mix 75-25 Sub-Q 20 unit daily 8. humalog 100 units/ml 20 units twice daily - PMHx: Diabetes - NIDDM: controlled; Hypertension; BPH; - PSHx: none; - Social history: Smoking status: Patient/guardian denies using No barriers to communication noted, The patient speaks fluent Georgian. - Family history: Not pertinent. - : The pt / caregiver states he / she is not on anticoagulants. Home medication list is obtained from the patient. - Exposure Risk Screening:: None identified. Vital Signs: 03/29 10:40 BP 133 / 69; Pulse 72; Resp 18 S; Temp 97.2(O); Pulse Ox 98% on R/A; Weight 111.13 kg / dd6 245 lbs (R); Height 5 ft. 8 in. (172.72 cm) (R); 14:48 BP 119 / 66; Pulse 62; Resp 16; Temp 98(O); Pulse Ox 98% on R/A; Pain 6/10; kr3 16:57 BP 124 / 69; Pulse 90; Resp 16; Temp 97.3; Pulse Ox 98% on R/A; jmk 10:40 Body Mass Index 37.25 (111.13 kg, 172.72 cm) dd6 MDM: 11:41 IV Saline Lock ordered. mo1 11:41 -Blood Culture (Adults Only), peripheral from different site, or from device/port/PICC mo1 etc. if present ordered. 11:42 -Blood Culture (Adults Only), peripheral from different site, or from device/port/PICC ar3 etc. if present complete. 11:42 CBC with Diff Ordered. EDMS 11:42 BMP Ordered. EDMS 11:42 ESR Ordered. EDMS 11:42 CRP Ordered. EDMS 11:42 Uric Acid Ordered. EDMS 11:42 Lyme Disease Antibodies Ordered. EDMS 11:42 -Blood Culture Ordered. EDMS 11:43 Hand, Complete Ordered. EDMS 11:43 BLOOD CULTURES Ordered. EDMS 11:47 US Upper Extremity R/O DVT Ordered. EDMS 11:57 BLOOD CULTURES Ordered. EDMS 12:40 Uric Acid Reviewed. mo1 12:41 CRP Reviewed. mo1 12:41 BMP Reviewed. mo1 12:53 CBC with Diff Reviewed. mo1 12:54 NS 0.9% 1000 ml IV at bolus once ordered. mo1 12:54 Ceftaroline Fosamil 600 mg IV at bolus once over 30 mins; reconstitute with 20mL NS or mo1 SW, then dilulte in 50mL of NS, D5W or LR ordered. 12:54 BED REQUEST+ADM ordered. EDMS 13:16 [facility] Payment Agreement was scanned into [email or web address] and attached to record. jp5 13:16 Financial registration complete. jp5 13:22 US Upper Extremity R/O DVT Reviewed. mo1 13:48 CBC with Diff Reviewed. mo1 13:48 ESR Reviewed. mo1 13:50 MRI Screening Tool - Place on chart, inform RN ordered. mo1 [facility] ordered. mo1 14:09 MRI Screening Tool - Place on chart, inform RN complete. kr3 14:27 MRI WRIST WITHOUT FOL BY WITH Ordered. EDMS 14:27 MRI Hand WITHOUT FOL BY WITH Ordered. EDMS 14:36 Admission / Observation Status ordered. EDMS 14:36 CONSISTENT CARBOHYDRATES ordered. EDMS 14:37 URINALYSIS Ordered. EDMS 14:41 ANTI-NEUTROPHIL CYTOPLASMIC AB Ordered. EDMS 21:49 T-Sheet-- Draft Copy was scanned into [email or web address] and attached to record. klr Administered Medications: 13:08 Drug: NS 0.9% 1000 ml [sodium chloride 0.9 % intravenous solution] Route: IV; Rate: kr3 bolus; Site: right forearm; 15:15 Follow up: IV Status: Completed infusion; IV Intake: 500ml kr3 13:08 Drug: Ceftaroline Fosamil 600 mg [ceftaroline fosamil 600 mg intravenous solution] kr3 Route: IV; Rate: bolus; Infused Over: 30 mins; Site: right forearm; 13:40 Follow up: IV Status: Completed infusion kr3 Signatures: Dispatcher [employer] EDMS Vero Arguelles RN RN kcs Tracy Guerra RN RN Yonny Scott,RN RN Yady Ortega RN RN Coreen Ramsay RN RN kr3 Beverly Amaro, ADELINE SENIOR MECHANICAL DESIGNER ar3 Alex Fofana PA PA mo1 Onesimo Lorenzo jp5 Pema Bryant The chart was reviewed and I authenticate all verbal orders and agree with the evaluation and treatment provided.Corrections: (The following items were deleted from the chart) 10:57 10:44 Home Meds: metformin Oral; dls kcs 13:49 13:44 [facility] Pulp Roller Order ordered. mo1 mo1 14:33 14:05 MRI Hand WITHOUT FOL BY WITH ordered. EDMS EDMS 14:41 14:35 ANTI-NEUTROPHIL CYTOPLASMIC AB ordered. EDMS EDMS Attachments: 13:16 [facility] Payment Agreement jp5 21:49 T-Sheet-- Draft Copy klr Chart Complete MTDD
--- NOTE | 2016-03-31 18:01 | EDDOCDS ---
Physician Documentation [facility] Name: Javan Park Age: 80 yrs Sex: Male : 1935 Arrival Date: 03/29/2016 Time: 10:39 Bed MRI Private MD: Natalie Pop PA-C Disposition: 03/29/16 14:20 Hospitalization ordered by Poonam Abreu for Inpatient Admission. Preliminary diagnosis is Cellulitis of left upper limb. - Bed requested for 4 [place]. - Status is Inpatient Admission. tashik - Condition is Stable. - Problem is new. - Symptoms are unchanged. Historical: - Allergies: no known allergies; - Home Meds: 1. cephalexin 500 mg Oral tab 1 tab every 12 hours on day 3 2. tamsulosin 0.4 mg oral cp24 1 cap once daily 3. lisinopril 40 mg Oral tab 1 tab once daily 4. Lasix 20 mg Oral tab 1 tab once daily 5. metoprolol tartrate 50 mg Oral tab once daily 6. Onglyza 5 mg oral tab 1 tab once daily 7. Humalog Mix 75-25 Sub-Q 20 unit daily 8. humalog 100 units/ml 20 units twice daily - PMHx: Diabetes - NIDDM: controlled; Hypertension; BPH; - PSHx: none; - Social history: Smoking status: Patient/guardian denies using No barriers to communication noted, The patient speaks fluent Upper Sorbian. - Family history: Not pertinent. - : The pt / caregiver states he / she is not on anticoagulants. Home medication list is obtained from the patient. - Exposure Risk Screening:: None identified. Vital Signs: 03/29 10:40 BP 133 / 69; Pulse 72; Resp 18 S; Temp 97.2(O); Pulse Ox 98% on R/A; Weight 111.13 kg / dd6 245 lbs (R); Height 5 ft. 8 in. (172.72 cm) (R); 14:48 BP 119 / 66; Pulse 62; Resp 16; Temp 98(O); Pulse Ox 98% on R/A; Pain 6/10; kr3 16:57 BP 124 / 69; Pulse 90; Resp 16; Temp 97.3; Pulse Ox 98% on R/A; jmk 10:40 Body Mass Index 37.25 (111.13 kg, 172.72 cm) dd6 MDM: 11:41 IV Saline Lock ordered. mo1 11:41 -Blood Culture (Adults Only), peripheral from different site, or from device/port/PICC mo1 etc. if present ordered. 11:42 -Blood Culture (Adults Only), peripheral from different site, or from device/port/PICC ar3 etc. if present complete. 11:42 CBC with Diff Ordered. EDMS 11:42 BMP Ordered. EDMS 11:42 ESR Ordered. EDMS 11:42 CRP Ordered. EDMS 11:42 Uric Acid Ordered. EDMS 11:42 Lyme Disease Antibodies Ordered. EDMS 11:42 -Blood Culture Ordered. EDMS 11:43 Hand, Complete Ordered. EDMS 11:43 BLOOD CULTURES Ordered. EDMS 11:47 US Upper Extremity R/O DVT Ordered. EDMS 11:57 BLOOD CULTURES Ordered. EDMS 12:40 Uric Acid Reviewed. mo1 12:41 CRP Reviewed. mo1 12:41 BMP Reviewed. mo1 12:53 CBC with Diff Reviewed. mo1 12:54 NS 0.9% 1000 ml IV at bolus once ordered. mo1 12:54 Ceftaroline Fosamil 600 mg IV at bolus once over 30 mins; reconstitute with 20mL NS or mo1 SW, then dilulte in 50mL of NS, D5W or LR ordered. 12:54 BED REQUEST+ADM ordered. EDMS 13:16 [facility] Payment Agreement was scanned into [employer] and attached to record. jp5 13:16 Financial registration complete. jp5 13:22 US Upper Extremity R/O DVT Reviewed. mo1 13:48 CBC with Diff Reviewed. mo1 13:48 ESR Reviewed. mo1 13:50 MRI Screening Tool - Place on chart, inform RN ordered. mo1 13:50 [facility] Scientific Technical Writer Order ordered. mo1 14:09 MRI Screening Tool - Place on chart, inform RN complete. kr3 14:27 MRI WRIST WITHOUT FOL BY WITH Ordered. EDMS 14:27 MRI Hand WITHOUT FOL BY WITH Ordered. EDMS 14:36 Admission / Observation Status ordered. EDMS 14:36 CONSISTENT CARBOHYDRATES ordered. EDMS 14:37 URINALYSIS Ordered. EDMS 14:41 ANTI-NEUTROPHIL CYTOPLASMIC AB Ordered. EDMS 21:49 T-Sheet-- Draft Copy was scanned into [employer] and attached to record. klr Administered Medications: 13:08 Drug: NS 0.9% 1000 ml [sodium chloride 0.9 % intravenous solution] Route: IV; Rate: kr3 bolus; Site: right forearm; 15:15 Follow up: IV Status: Completed infusion; IV Intake: 500ml kr3 13:08 Drug: Ceftaroline Fosamil 600 mg [ceftaroline fosamil 600 mg intravenous solution] kr3 Route: IV; Rate: bolus; Infused Over: 30 mins; Site: right forearm; 13:40 Follow up: IV Status: Completed infusion kr3 Signatures: Dispatcher [employer] EDMS Vero Arguelles RN RN kcs Tracy Guerra RN RN Yonny Scott,RN RN Yady Ortega RN RN Coreen Ramsay RN RN kr3 Beverly Amaro, ADELINE PRODUCT SUPPORT REPRESENTATIVE ar3 Alex Fofana PA PA mo1 Onesimo Lorenzo jp5 Pema Bryant The chart was reviewed and I authenticate all verbal orders and agree with the evaluation and treatment provided.Corrections: (The following items were deleted from the chart) 10:57 10:44 Home Meds: metformin Oral; dls kcs 13:49 13:44 [facility] Scientific Technical Writer Order ordered. mo1 mo1 14:33 14:05 MRI Hand WITHOUT FOL BY WITH ordered. EDMS EDMS 14:41 14:35 ANTI-NEUTROPHIL CYTOPLASMIC AB ordered. EDMS EDMS Attachments: 13:16 [facility] Payment Agreement jp5 21:49 T-Sheet-- Draft Copy klr Chart Complete MTDD
[2016-03-31 22:00] VITALS: BP 144/65
[2016-04-01] MEDS: CEFTAROLINE FOSAMIL 600 MG in D5W MINI-BAG PLUS 50 ML IV SCH ×2 (00:15→14:26)
[2016-04-01 06:00] VITALS: BP 102/57
[2016-04-01 06:33] LABS: MEAN CORPUSCULAR HEMOGLOBIN 30.8 pg (27.0-33.0); MEAN CORPUSCULAR VOLUME 90.7 fl (80.0-96.0); RED CELL DISTRIBUTION WIDTH 12.7 % (11.5-14.5); WHITE BLOOD COUNT 11.5 K/mm3 (4.0-10.0)
[2016-04-01 06:49] LABS: CALCIUM LEVEL 9.2 MG/DL (8.8-10.2); CREATININE FOR GFR 1.71 MG/DL (0.70-1.30); GLOMERULAR FILTRATION RATE 41.1 (>35); POTASSIUM SERUM 4.7 MEQ/L (3.5-5.1)
[2016-04-01] MEDS: HumaLOG INSULIN (NovoLOG) PER UNIT SC SCH ×3 (07:45→17:07)
[2016-04-01 07:48] VITALS: BP 149/76
[2016-04-01] MEDS: HEPARIN SOD (PORCINE) 5000 UNITS/ML VIAL SC SCH ×2 (08:26→21:13)
[2016-04-01] MEDS: LEVEMIR (INSULIN DETEMIR) 1 UNITS/0.01ML SC SCH ×2 (08:26→21:15)
[2016-04-01] MEDS: ASPIRIN 81 MG ENTERIC TAB PO SCH (08:27)
[2016-04-01] MEDS: METOPROLOL TART 50 MG TAB PO SCH (08:27)
[2016-04-01] MEDS: ALLOPURINOL 100 MG TAB PO SCH (08:27)
[2016-04-01] MEDS: FUROSEMIDE 20 MG TAB PO SCH (08:28)
[2016-04-01] MEDS: TAMSULOSIN 0.4 MG CAP PO SCH (08:28)
[2016-04-01 14:00] VITALS: BP 140/65
--- NOTE | 2016-04-01 16:23 | IPN ---
DATE: 04/01/2016 SUBJECTIVE: Patient is seen and examined in the room today. Patient stated his right hand swelling shows continued improvement, however he still has some discomfort at the left distal upper extremity which he cannot rotate the wrist and arm freely due to the pain. Patient did have intermittent temperature of 99.6. Patient does have a history of gout, but previously at the toes. He never had any gout issue at other locations. No overnight events are reported. OBJECTIVE: VITAL SIGNS: Temperature 99.6, pulse 69, respirations 18, blood pressure 149/76, pulse oximetry 95% in room air. GENERAL: No signs of acute distress. Alert and oriented times three. HEENT: Normocephalic, atraumatic. Extraocular motors grossly intact. CARDIOVASCULAR: Positive S1, S2, regular rate. LUNGS: Clear to auscultation bilaterally. ABDOMEN: Soft, nontender, nondistended. Bowel sounds present. EXTREMITIES: Still some residual swelling and erythema mainly at the left distal upper extremity. There is tenderness to rotate the left hand/arm. The range of motion of the left fingers shows improvement compared to yesterday. The swelling is also improving and we are able to see some wrinkles of the hand. No lower extremity edema. No sign of cyanosis. LABORATORY DATA: WBC 11.5, hemoglobin 12.6, hematocrit 37, platelet count 386, ESR 105. Sodium 137, potassium 4.7, chloride 106, carbon dioxide 22, BUN 28, creatinine 1.71, GFR 41.1, fasting glucose 181, calcium 9.2, C-reactive protein 11.6. Microbiology: Blood cultures negative after 72 hours times two sets. ASSESSMENT AND PLAN: 1. Left hand swelling. The left hand swelling and erythema still continues to decrease. Patient's erythrocyte sedimentation rate (ESR) and C-reactive protein (CRP) show continued gradual decrease with antibiotic use. Will continue with Teflaro. The previous left hand fluctuant mass drainage showed moderate white blood cells (WBCs). Later fluid analysis shows elevated count of uric acid. Patient is started on allopurinol. 2. History of gout. Initiated on allopurinol. 3. Hypertension. Patient is Lasix and metoprolol. Lisinopril is on hold due to acute on chronic renal injury. Patient has creatinine baseline around 1.6 which is in April 2015. On the day of admission, patient's creatinine was close to 1.9. Currently patient's creatinine is towards the baseline. Will continue current management. Patient is on Lasix. 4. Benign prostatic hypertrophy. On Flomax. 5. Type 2 diabetes. Consistent carbohydrate diet and sliding scale. 6. Deep venous thrombosis (DVT) prophylaxis. Patient is on heparin.
[2016-04-01] MEDS: PERCOCET 5MG/325MG TAB PO PRN ×2 (17:08→21:14)
[2016-04-01 22:00] VITALS: BP 143/83
[2016-04-02] MEDS: CEFTAROLINE FOSAMIL 600 MG in D5W MINI-BAG PLUS 50 ML IV SCH (00:08)
[2016-04-02 00:11] LABS: Lyme Disease IgG Ab 18 kDa Ban Present (.); Lyme Disease IgG Ab 23 kDa Ban Absent (.); Lyme Disease IgG Ab 28 kDa Ban Absent (.); Lyme Disease IgG Ab 30 kDa Ban Absent (.); Lyme Disease IgG Ab 39 kDa Ban Present (.); Lyme Disease IgG Ab 41 kDa Ban Present (.); Lyme Disease IgG Ab 45 kDa Ban Present (.); Lyme Disease IgG Ab 58 kDa Ban Present (.); Lyme Disease IgG Ab 66 kDa Ban Absent (.); Lyme Disease IgG Ab 93 kDa Ban Absent (.); Lyme Disease IgG West Blot Int Positive (.); Lyme Disease IgG/IgM Antibodie 2.75 ISR (0.00-0.90); Lyme Disease IgM Ab 23 kDa Ban Present (.); Lyme Disease IgM Ab 39 kDa Ban Absent (.); Lyme Disease IgM Ab 41 kDa Ban Absent (.); Lyme Disease IgM Ab Quantitati <0.80 index (0.00-0.79); Lyme Disease IgM West Blot Int Negative (.)
[2016-04-02] MEDS: ACETAMINOPHEN TAB 650MG DOSE (2X325MG) PO PRN (00:30)
[2016-04-02 06:00] VITALS: BP 142/81
[2016-04-02 06:14] LABS: MEAN CORPUSCULAR HEMOGLOBIN 30.4 pg (27.0-33.0); MEAN CORPUSCULAR HGB CONC 33.6 g/dl (32.0-36.5); MEAN CORPUSCULAR VOLUME 90.7 fl (80.0-96.0); RED CELL DISTRIBUTION WIDTH 12.6 % (11.5-14.5); WHITE BLOOD COUNT 9.8 K/mm3 (4.0-10.0)
[2016-04-02 06:25] LABS: CREATININE FOR GFR 1.59 MG/DL (0.70-1.30); GLOMERULAR FILTRATION RATE 44.7 (>35); POTASSIUM SERUM 4.6 MEQ/L (3.5-5.1)
[2016-04-02] MEDS: LEVEMIR (INSULIN DETEMIR) 1 UNITS/0.01ML SC SCH ×2 (09:00→20:20)
[2016-04-02] MEDS: HEPARIN SOD (PORCINE) 5000 UNITS/ML VIAL SC SCH ×2 (09:04→20:19)
[2016-04-02] MEDS: METOPROLOL TART 50 MG TAB PO SCH (09:04)
[2016-04-02] MEDS: ASPIRIN 81 MG ENTERIC TAB PO SCH (09:04)
[2016-04-02] MEDS: FUROSEMIDE 20 MG TAB PO SCH (09:04)
[2016-04-02] MEDS: TAMSULOSIN 0.4 MG CAP PO SCH (09:04)
[2016-04-02] MEDS: HumaLOG INSULIN (NovoLOG) PER UNIT SC SCH ×3 (09:05→17:42)
[2016-04-02] MEDS: ALLOPURINOL 100 MG TAB PO SCH (09:05)
[2016-04-02] MEDS ORDERED: predniSONE 20 MG TAB PO ONE (11:00)
[2016-04-02] MEDS: DOXYCYCLINE HYCLATE 100 MG TAB PO SCH ×2 (11:59→20:19)
[2016-04-02 14:00] VITALS: BP 141/61
--- NOTE | 2016-04-02 15:02 | IPN ---
DATE: 04/02/2016 SUBJECTIVE: Patient is seen and examined in the room today. Patient stated that he still has some difficulty moving his left upper extremity, especially near the wrist joint and elbow. He has some improvement of the finger digit movements. He denies any fevers or chills. No overnight events are reported. OBJECTIVE: VITAL SIGNS: Temperature 96.5, pulse is 67, respirations 16, blood pressure is 142/81, pulse oximetry is 96% on room air. GENERAL: No signs of acute distress. Alert and oriented times three. HEENT: Normocephalic, atraumatic. Extraocular motors grossly intact. CARDIOVASCULAR: Positive S1, S2, regular rate. LUNGS: Clear to auscultation bilaterally. ABDOMEN: Soft, nontender, nondistended. Bowel sounds present. No rebound or guarding. EXTREMITIES: There is some residual swelling of the left upper extremities. Erythema is almost resolved. There is still tenderness to palpation or any type of movement around the left wrist joint. There is some discomfort when moving the left elbow joint. Range of motion is impaired. No lower extremity edema. No sign of cyanosis. LABORATORY DATA: WBC 9.8, hemoglobin 11.3, hematocrit 33.8, platelet count is 341. ESR is 107. Sodium 138, potassium 4.6, chloride is 104, carbon dioxide 23, BUN 30, creatinine is 1.59, GFR is 44.7, fasting glucose 188, calcium 9.0, C-reactive protein 12.4. ASSESSMENT AND PLAN: 1. Left upper extremity swelling and pain. Dr. Wise has been consulted. THe patient is determined to have gout, and the patient also has Lyme disease. The patient's antibiotic was switched to doxycycline and Teflaro will be discontinued. The patient was started on a trial of prednisone and prednisone 40 mg by mouth daily will be given today and he may be titrated down to 20 mg by mouth daily tomorrow. The patient has been receiving allopurinol. Nonsteroidal antiinflammatory drugs are not given because of the patient's acute kidney injury. 2. Gout. The patient has manifestation at the ankle joint. This is the first time he has ever noticed any upper extremity gout findings. Start a trial of prednisone. We will reserve the NSAIDs for now. The patient had acute kidney injury, which is improving. The patient had a GFR of 37.3 on 03/29/2016. 3. Lyme disease. The Lyme titer became available this morning. Dr. Wise has been consulted. The patient was started on doxycycline. 4. Acute kidney injury, improving. The patient's GFR is improved from 37.3 to 44.7 in the past few days. The patient is currently on Lasix. 5. History of hypertension. The patient is currently on Lasix and metoprolol. Lisinopril has been on hold due to acute on chronic renal injury. The patient has a baseline creatinine of 1.6 in April 2015. 6. Benign prostatic hypertrophy (BPH). On Flomax. 7. Type 2 diabetes. On consistent carbohydrate diet and sliding scale. 8. Deep venous thrombosis (DVT) prophylaxis. Patient is on heparin.
[2016-04-02] MEDS: PERCOCET 5MG/325MG TAB PO PRN (15:28)
--- NOTE | 2016-04-02 17:45 | CR ---
DATE OF CONSULTATION: 04/02/2016 REASON FOR CONSULTATION: Asked to consult by Dr. Bateman for evaluation of left dorsal hand swelling, with aspiration positive for gout crystals and positive Lyme serology. Mr. Park is an 80-year-old of insulin-dependent diabetic poorly controlled, who is admitted with a three-week history of redness and swelling of his left hand. The patient stated that it started with swelling of the dorsal aspect of the hand and then it progressively got worse. He never had associated fever or chills. No trauma to the hand. The patient saw Natalie Pop, who prescribed him Keflex 500 mg once a day and he probably got a shot of Rocephin in the office. It did not seem to improve and, therefore, he came to the emergency room with complaint of worsening swelling. He had an ultrasound of the left upper extremity which did not show any deep venous thrombosis (DVT). X-ray showed degenerative changes of the metacarpophalangeal (MCP) joint, especially of the long and index fingers. He had an MRI which showed significant changes and tenosynovitis. He was seen in consultation by Dr. Perdomo who aspirated his third MCP joint and was positive for crystals. He was started on intravenous (IV) ceftaroline with improvement, as well as allopurinol 100 mg daily. The patient states that he got bit by a tick sometime in 2013. He went to see his primary care provider who did a Lyme serology which was negative. He never developed a bullseye around the tick bite and never had any systemic symptoms following that bite. PAST MEDICAL HISTORY: His past medical history significant for hypertension, insulin-dependent diabetes with diabetic nephropathy, benign prostatic hypertrophy, onychomycosis. PAST SURGICAL HISTORY: None. PREVIOUS HOSPITALIZATION: Never. SOCIAL HISTORY: Does not smoke or drink. He quit smoking over 25 years ago cold turkey, never restarted and stop drinking as well at the same time he retired. 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 He lives now in [facility] on the [facility]. He goes hunting all the time. He drives, live alone. He does not have kids, and he is . REVIEW OF SYSTEMS: His only complaint is left arm pain which was worse last night. He has no nausea, vomiting, diarrhea, abdominal pain. No fever or chills. No chest pain or shortness of breath. No history of myocardial infarction ([place]). No strokes. MEDICATIONS: - allopurinol 100 mg by mouth daily - aspirin 81 mg by mouth daily - Lasix 20 mg by mouth daily - Lopressor 50 mg by mouth daily - Flomax 0.4 mg by mouth daily - Levemir 20 units subcutaneous twice a day - ceftaroline 600 mg IV every 12 hours - Zofran as needed for nausea ALLERGIES: No known drug allergies. LABORATORY DATA: White count on admission was 16.8. Sed rate is 100.7. The next day his white count was 10.2. Today white count is 9.8, hemoglobin 11.3, hematocrit 33.8, platelets 341. ESR 107. Sodium 138, potassium 4.6, chloride 104, bicarb 23, BUN 30, creatinine 1.6, glucose 188, calcium 9. CRP 12.4. MICROBIOLOGY: Blood cultures two sets done on March 29 were negative. Joint fluid aspiration showed moderate white cells, no organisms seen and no growth, but had gout crystals. SEROLOGY: Lyme serology shows a titer of 2.75 with 5/10 positive Lyme bands in the IgG ratio and 1/3 in the IgM. RADIOLOGY: MRI of the left hand and wrist shows extensive soft tissue swelling, cellulitis over the dorsal hand and wrist and to lesser extent, volar aspect of the wrist and base of the thumb with fluid collection showing some enhancement surrounding them along the dorsal aspect as well. This may reflect small areas of tenosynovitis or developing abscess. There is no definite osteomyelitis or joint effusion. Vascular ultrasound was negative. PHYSICAL EXAMINATION: GENERAL: On physical exam, he is a healthy-looking gentleman in no acute distress. VITAL SIGNS: Temperature is 96.5, temperature maximum (T-max) was 99.6 yesterday , pulse 67, respirations 16, blood pressure 142/81 HEART: Normal S1, S2 with no murmurs, rubs, gallops. LUNGS: Clear. No wheezes, rales or rhonchi. ABDOMEN: Soft, obese, nontender. No hepatosplenomegaly. EXTREMITIES: [place] and Sofía nodes on fingers bilaterally. Left hand swollen. The patient cannot completely flex all fingers. Right hand has complete normal range of motion. Wrist has limited range of motion with swelling and tenderness. Elbow has normal range of motion but has definite tenderness. His forearm also is tender to touch but there is no evidence of cellulitis of the forearm. The hand has mild swelling and mild redness. IMPRESSION This is an 80-year-old gentleman with a history of insulin-dependent diabetes poorly controlled, gout poorly controlled, with hyperuricemia and a uric acid of 9.3, chronic kidney disease, who presents with worsening left arm swelling and hand swelling with limited range of motion over three-week duration. This was not associated with fever. He was treated with IV ceftaroline, and allopurinol was started. The patient has persistent pain but the swelling has markedly improved. I am not convinced that the patient has cellulitis. I suspect the patient had a flare-up of gouty arthritis with a possible atypical manifestation of Lyme disease arthritis, as a late manifestation of Lyme disease which usually presents in the knees but could present in any joints as well. The patient would have responded to ceftaroline as cephalosporins are adequate coverage for treatment of Lyme as well. PLAN: Discontinue IV ceftaroline. There is no need for broad-spectrum coverage. Switch him to doxycycline 100 mg by mouth twice a day, which would be a treatment for Lyme disease as well as the less likely chance that this is cellulitis. That will cover methicillin-sensitive Staphylococcus aureus (MSSA), methicillin-resistant Staphylococcus aureus ( MRSA), and some streptococci. Culture of note was negative. Start prednisone 40 mg one dose today then 20 mg daily. If the patient is improved by the next 24 hours, he could be discharged home. Please continue doxycycline for a total of 21 days to treat for Lyme arthritis. MTDD
[2016-04-02 22:00] VITALS: BP 119/55
[2016-04-03 06:00] VITALS: BP 118/61
[2016-04-03 06:01] LABS: MEAN CORPUSCULAR HEMOGLOBIN 30.8 pg (27.0-33.0); MEAN CORPUSCULAR HGB CONC 32.8 g/dl (32.0-36.5); MEAN CORPUSCULAR VOLUME 94.1 fl (80.0-96.0); RED CELL DISTRIBUTION WIDTH 12.6 % (11.5-14.5); WHITE BLOOD COUNT 12.5 K/mm3 (4.0-10.0)
[2016-04-03 06:17] LABS: CALCIUM LEVEL 9.5 MG/DL (8.8-10.2); CREATININE FOR GFR 1.85 MG/DL (0.70-1.30); GLOMERULAR FILTRATION RATE 37.5 (>35); POTASSIUM SERUM 4.9 MEQ/L (3.5-5.1)
[2016-04-03] MEDS: METOPROLOL TART 50 MG TAB PO SCH (08:05)
[2016-04-03] MEDS: predniSONE 20 MG TAB PO SCH (08:05)
[2016-04-03] MEDS: FUROSEMIDE 20 MG TAB PO SCH (08:05)
[2016-04-03] MEDS: ASPIRIN 81 MG ENTERIC TAB PO SCH (08:05)
[2016-04-03] MEDS: TAMSULOSIN 0.4 MG CAP PO SCH (08:06)
[2016-04-03] MEDS: HEPARIN SOD (PORCINE) 5000 UNITS/ML VIAL SC SCH ×2 (08:06→20:24)
[2016-04-03] MEDS: ALLOPURINOL 100 MG TAB PO SCH (08:06)
[2016-04-03] MEDS: HumaLOG INSULIN (NovoLOG) PER UNIT SC SCH ×4 (08:06→21:00)
[2016-04-03] MEDS: DOXYCYCLINE HYCLATE 100 MG TAB PO SCH ×2 (08:06→20:24)
[2016-04-03] MEDS: LEVEMIR (INSULIN DETEMIR) 1 UNITS/0.01ML SC SCH ×2 (08:07→20:26)
[2016-04-03] MEDS ORDERED: predniSONE 20 MG TAB PO ONE (10:15)
[2016-04-03 14:00] VITALS: BP 128/73
--- NOTE | 2016-04-03 18:43 | IPN ---
DATE: 04/03/2016 SUBJECTIVE: Patient is seen and examined in the room today. Patient stated that his pain shows some improvement with prednisone usage yesterday. The range of motion of his left hand and fingers has been increasing, but he still has difficulty rotating his left wrist and left elbow. He is left handed. Currently he does not feel that he can perform his daily activity function at the current state because of left hand movement impairment. The patient has a healthcare proxy, Mrs. Rios. I had a short discussion with her. Mrs. Rios is Mr. Park friend. I did have an opportunity to talk to her and give her updates about Mr. Park's condition and the treatment plan. All questions were answered. OBJECTIVE: VITAL SIGNS: Temperature 97.1, pulse is 56, respirations 16, blood pressure is 118/61, pulse oximetry is 96% on room air. GENERAL: No signs of acute distress. Alert and oriented times three. HEENT: Normocephalic, atraumatic. Extraocular motors grossly intact. CARDIOVASCULAR: Positive S1, S2, regular rate. LUNGS: Clear to auscultation bilaterally. ABDOMEN: Soft, nontender, nondistended. Bowel sounds present. No rebound or guarding. EXTREMITIES: Some residual swelling of the left upper extremity. Mainly toward the left hand and left wrist. The erythema has almost resolved. There is still tenderness to palpation and any type of range of motion of the left wrist will cause significant discomfort. No lower extremity edema. No sign of cyanosis. LABORATORY DATA: WBC is 12.5, hemoglobin is 12.1, hematocrit 36.8, platelet count is 354. Sodium is 137, potassium 4.9, chloride is 103, carbon dioxide is 26, BUN 37, creatinine is 1.85, GFR is 37.5, fasting glucose 295, calcium 9.5. Microbiology: Blood cultures are negative after 5 days, two sets. ASSESSMENT AND PLAN: 1. Left hand swelling. The patient has tested positive for gout and Lyme disease. The patient has been started on prednisone and allopurinol for the gout. The patient's antibiotic was switched to doxycycline yesterday due to a new finding of Lyme disease. The patient continues to show improvement. 2. Lyme disease. The patient is taking doxycycline 100 mg by mouth twice a day. Infectious disease doctor has been consulted. 3. Gout. The patient is started on prednisone 40 mg times one yesterday. The patient has started to show improvement; however, it is not as dramatic as anticipated. The patient's prednisone was continued at 40 mg by mouth daily today. Whenever the patient continues to show good results, we will start tapering down. 4. Acute kidney injury, improving. During the admission, the patient has a GFR around 37.3. Due to a history of acute kidney injury, this is the reason the patient is not on nonsteroidal antiinflammatory drug at this moment for his gout. We will monitor renal function. The patient has been taking Lasix. 5. History of hypertension. The patient is Lasix and metoprolol. Lisinopril is on hold due to acute on chronic renal injury. The patient has a baseline creatinine of 1.6 in April 2015. 6. Benign prostatic hypertrophy (BPH). On Flomax. 7. Type 2 diabetes. The patient has an A1/c of 9.2. The patient is surprised to find out he has poorly controlled diabetes. The patient is on sliding scale and consistent carbohydrate diet. 8. Deep venous thrombosis (DVT) prophylaxis. Patient is on heparin.
[2016-04-03] MEDS: PERCOCET 5MG/325MG TAB PO PRN (20:26)
[2016-04-03] MEDS ORDERED: HumaLOG INSULIN (NovoLOG) PER UNIT SC STA (21:37)
[2016-04-03 22:00] VITALS: BP 142/65
[2016-04-04] MEDS: PERCOCET 5MG/325MG TAB PO PRN ×2 (05:26→11:37)
[2016-04-04 06:00] VITALS: BP 120/57
[2016-04-04 06:09] LABS: MEAN CORPUSCULAR HEMOGLOBIN 30.6 pg (27.0-33.0); MEAN CORPUSCULAR HGB CONC 33.6 g/dl (32.0-36.5); MEAN CORPUSCULAR VOLUME 91.2 fl (80.0-96.0); RED CELL DISTRIBUTION WIDTH 12.7 % (11.5-14.5)
[2016-04-04 06:12] LABS: CALCIUM LEVEL 9.3 MG/DL (8.8-10.2); CREATININE FOR GFR 1.7 MG/DL (0.70-1.30); GLOMERULAR FILTRATION RATE 41.4 (>35); POTASSIUM SERUM 4.2 MEQ/L (3.5-5.1)
[2016-04-04] MEDS: HumaLOG INSULIN (NovoLOG) PER UNIT SC SCH ×4 (08:26→21:14)
[2016-04-04] MEDS: LEVEMIR (INSULIN DETEMIR) 1 UNITS/0.01ML SC SCH ×2 (08:26→21:14)
[2016-04-04] MEDS: METOPROLOL TART 50 MG TAB PO SCH (08:27)
[2016-04-04] MEDS: FUROSEMIDE 20 MG TAB PO SCH (08:27)
[2016-04-04] MEDS: HEPARIN SOD (PORCINE) 5000 UNITS/ML VIAL SC SCH ×2 (08:27→21:15)
[2016-04-04] MEDS: ASPIRIN 81 MG ENTERIC TAB PO SCH (08:27)
[2016-04-04] MEDS: TAMSULOSIN 0.4 MG CAP PO SCH (08:27)
[2016-04-04] MEDS: DOXYCYCLINE HYCLATE 100 MG TAB PO SCH ×2 (08:27→21:15)
[2016-04-04] MEDS: ALLOPURINOL 100 MG TAB PO SCH (08:28)
[2016-04-04] MEDS: predniSONE 20 MG TAB PO SCH (08:28)
[2016-04-04] MEDS ORDERED: predniSONE 20 MG TAB PO ONE (11:00)
--- NOTE | 2016-04-04 15:53 | IPN ---
DATE: 04/04/2016 SUBJECTIVE: Patient is seen and examined in the room today. Patient stated he is still having difficulty moving his left hand, wrist, and elbow. The swelling has shown significant improvement, there is almost no erythema. No recurrence of the abscess pocket. However, patient started to notice left ankle swelling. No overnight events are reported. OBJECTIVE: VITAL SIGNS: Temperature 97.8, pulse 60, respirations 18, blood pressure 120/57, pulse oximetry 98% in room air. GENERAL: Fatigue, no sign of acute distress, alert and oriented times three. HEENT: Normocephalic, atraumatic. Extraocular motors grossly intact. CARDIOVASCULAR; Positive S1, S2, regular rate. LUNGS: Clear to auscultation bilaterally. ABDOMEN: Soft, nontender, nondistended. Bowel sounds present. No rebound, no guarding. EXTREMITIES: No palpable fluctuance recurrent on the left hand. Patient shows increased range of motion of the left fingers, however patient had difficulty moving the left wrist and the left elbow due to significant pain. Patient started to have left ankle swelling, currently is 1+ to 2+ edema. No sign of cyanosis. LABORATORY DATA: WBC 13, hemoglobin 11.7, hematocrit 34.8, platelet count 381. Sodium 138, potassium 4.2, chloride 104, carbon dioxide 22, BUN 41, creatinine 1.7, GFR 41.4, fasting glucose 199, calcium 9.3. ASSESSMENT AND PLAN: 1. Left upper extremity swelling. Patient tested positive for gout and Lyme disease. Patient's antibiotic was switched to doxycycline after the Lyme test was positive. Patient has been getting prednisone 40 mg by mouth daily to control acute gout flare. Patient is also taking allopurinol. Patient's left upper extremity shows improvement, however patient's left hand symptoms have not returned to his baseline. Patient is left handed, his daily activity function depends on using his left hand. Patient currently is not stable to go home because patient lives alone and patient cannot take care of himself at this moment. Continue with physical therapy (PT) and occupational therapy (OT). 2. Lyme disease. Patient started taking doxycycline 100 mg by mouth twice a day. Infectious disease, Dr. Wise, has been consulted. 3. Gout. Patient is started on prednisone 40 mg by mouth daily. Patient has started to show improvement. Patient is continued on allopurinol. Patient has acute on chronic renal injury, cautious with regard to nephrotoxin medications. 4. Acute on chronic kidney injury. Patient's glomerular filtration rate (GFR) is around his baseline. Will continue to monitor the renal function. Patient is taking his home dose of Lasix. We will try to avoid nonsteroidal anti-inflammatory drugs (NSAIDs). 5. History of hypertension. Patient is on Lasix and metoprolol. Lisinopril was on hold due to the acute on chronic renal injury. Patient had baseline creatinine at 1.6 in April 2015. 6. BPH. On Flomax. 7. Patient has type 2 diabetes with A1c of 9.2. Currently, patient is on consistent carbohydrate diet and insulin sliding scale. 8. Deep venous thrombosis (DVT) prophylaxis. Patient is on heparin.
[2016-04-04 16:00] VITALS: BP 149/64
[2016-04-04 22:00] VITALS: BP 153/77
[2016-04-05 05:43] LABS: MEAN CORPUSCULAR HEMOGLOBIN 30.4 pg (27.0-33.0); MEAN CORPUSCULAR HGB CONC 33.8 g/dl (32.0-36.5); MEAN CORPUSCULAR VOLUME 89.8 fl (80.0-96.0); RED CELL DISTRIBUTION WIDTH 12.8 % (11.5-14.5); WHITE BLOOD COUNT 13.4 K/mm3 (4.0-10.0)
[2016-04-05 05:59] LABS: CALCIUM LEVEL 9.3 MG/DL (8.8-10.2); CREATININE FOR GFR 1.66 MG/DL (0.70-1.30); GLOMERULAR FILTRATION RATE 42.5 (>35); POTASSIUM SERUM 4.2 MEQ/L (3.5-5.1)
[2016-04-05 06:00] VITALS: BP 177/63
[2016-04-05] MEDS: LEVEMIR (INSULIN DETEMIR) 1 UNITS/0.01ML SC SCH ×2 (07:54→21:24)
[2016-04-05] MEDS: HumaLOG INSULIN (NovoLOG) PER UNIT SC SCH ×4 (07:54→21:25)
[2016-04-05] MEDS: DOXYCYCLINE HYCLATE 100 MG TAB PO SCH ×2 (07:55→21:25)
[2016-04-05] MEDS: METOPROLOL TART 50 MG TAB PO SCH (07:55)
[2016-04-05] MEDS: TAMSULOSIN 0.4 MG CAP PO SCH (07:55)
[2016-04-05] MEDS: predniSONE 20 MG TAB PO SCH (07:55)
[2016-04-05] MEDS: ASPIRIN 81 MG ENTERIC TAB PO SCH (07:55)
[2016-04-05] MEDS: ALLOPURINOL 100 MG TAB PO SCH (07:56)
[2016-04-05] MEDS: HEPARIN SOD (PORCINE) 5000 UNITS/ML VIAL SC SCH ×2 (07:56→21:25)
[2016-04-05 14:00] VITALS: BP 115/59
--- NOTE | 2016-04-05 15:49 | IPN ---
DATE: 04/05/2016 SUBJECTIVE: Patient is seen and examined in the room today. Patient is still complaining about significant pain of the left wrist, especially during wrist rotation or flexion and extension. Patient does not feel he is able to take care of himself at home because he is left-handed and currently his left hand movement is impaired. OBJECTIVE: VITAL SIGNS: Temperature 97.6, pulse 54, respirations 18, blood pressure 177/63, pulse oximetry 98% in room air. GENERAL: No sign of acute distress, alert and oriented times three. HEENT: Normocephalic, atraumatic. Extraocular motors grossly intact. CARDIOVASCULAR: Positive S1, S2, regular rate. LUNGS: Clear to auscultation bilaterally. ABDOMEN: Soft, nontender, nondistended. Bowel sounds present. No rebound, no guarding. EXTREMITIES: The swelling and erythema of the left hand has been improving. There is no recurrence of palpable fluctuance in the left hand. Patient demonstrates significant tenderness during any type of left wrist movement. There is also residual pain at the left elbow. No lower extremity edema. No sign of cyanosis. LABORATORY DATA: WBC 13.4, hemoglobin 12, hematocrit 35.6, platelet count 401, ESR 107. Sodium 137, potassium 4.2, chloride 104, carbon dioxide 22, BUN 39, creatinine 1.68, GFR 42.5, fasting glucose 213, calcium 9.3, C-reactive protein 3.53. ASSESSMENT AND PLAN: 1. Left upper extremity swelling. Patient tested positive for gout and Lyme disease. Patient's symptoms are improving. Patient is receiving doxycycline for the Lyme disease. Infectious disease has been consulted. Patient is taking prednisone 40 mg by mouth daily to control the acute gout flare and patient is also taking allopurinol and as needed nonsteroidal anti-inflammatory drug (NSAID). Patient has been seen by physical therapy and occupational therapy. Patient has been cleared per their evaluation, however currently patient does not feel comfortable to go home at this moment. Patient still is demonstrating restriction of the left upper extremity mobility. Patient is left-handed and he is dependent on his left hand to perform all tasks. Will continue to monitor patient. 2. Lyme disease. Taking doxycycline 100 mg by mouth twice a day. Dr. Wise has been consulted. 3. Gout. Patient is continued on prednisone 40 mg by mouth daily. Patient is continuing to show improvement. Patient is on allopurinol. Due to acute on chronic renal injury, cautions with regard to nephrotoxic medications. 4. Acute on chronic kidney injury. Patient is currently on Lasix home dose. His renal function is closer to his baseline. 5. Hypertension. Lasix and metoprolol. Lisinopril has been on hold due to acute on chronic renal failure. Patient had a baseline creatinine of 1.6 in April 2015. Currently blood pressure is in satisfactory range. Patient may not need the lisinopril. Will continue holding the lisinopril. If patient has uncontrolled blood pressure, then restarting the lisinopril will be an option. 6. BPH. On Flomax. 7. Uncontrolled type 2 diabetes with A1c of 9.2. Continue consistent carbohydrate diet. Continue sliding scale. 8. Deep venous thrombosis (DVT) prophylaxis. Patient is on heparin.
--- NOTE | 2016-04-05 16:44 | IPN ---
DATE: 04/05/2016 Mr. Antonio feels better but he still complains of wrist pain and difficulty flexing at the wrist. His elbow pain and swollen MCP joint have diminished. Erythema has improved. He has no nausea, vomiting or diarrhea. No fever or chills. VITAL SIGNS: Temperature is 97.5, pulse 56, respirations 18, blood pressure 115/59, O2 sat 99% on room air. Heart: Normal S1-S2. No murmurs. Lungs are clear. Abdomen is soft, nontender. Extremities: Ankle edema with thick onychomycosis of both feet and dry calluses. Left wrist still limited range of motion. He can flex and extend about 10 degrees. Left elbow mildly tender laterally. No erythema normal range of motion. MCP joint swelling has decreased. LABORATORY DATA: White count of 13.4, hemoglobin 12, hematocrit 35.6, platelets 401. Sed rate is 107, sodium 137, potassium 4.2, chloride 104, bicarb 22, BUN 39, creatinine 1.6, glucose 213, calcium 9.3, CRP is 3.53 down from 12.4. IMPRESSION: 1. 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 Doing better with prednisone currently receiving 40 mg. 2. Positive Lyme serology. Could be a manifestation of Lyme arthritis in his left arm on doxycycline 100 mg by mouth twice a day for 21 days. Please continue on discharge. 3. Insulin-dependent diabetes with diabetic neuropathy and onychomycosis. The patient was made an at appointment to see Dr. Blanc as an outpatient. PLAN: Continue same management. The patient could be safely discharged home tomorrow.
[2016-04-05 22:00] VITALS: BP 142/63
[2016-04-06 06:00] VITALS: BP 152/73
[2016-04-06 06:51] LABS: MEAN CORPUSCULAR HEMOGLOBIN 31.1 pg (27.0-33.0); MEAN CORPUSCULAR HGB CONC 34.4 g/dl (32.0-36.5); MEAN CORPUSCULAR VOLUME 90.4 fl (80.0-96.0); RED CELL DISTRIBUTION WIDTH 12.4 % (11.5-14.5)
[2016-04-06 07:06] LABS: CALCIUM LEVEL 9.5 MG/DL (8.8-10.2); CREATININE FOR GFR 1.65 MG/DL (0.70-1.30); GLOMERULAR FILTRATION RATE 42.8 (>35); POTASSIUM SERUM 4.3 MEQ/L (3.5-5.1)
[2016-04-06] MEDS: HumaLOG INSULIN (NovoLOG) PER UNIT SC SCH ×4 (07:34→21:39)
[2016-04-06] MEDS: predniSONE 20 MG TAB PO SCH (07:35)
[2016-04-06] MEDS: LEVEMIR (INSULIN DETEMIR) 1 UNITS/0.01ML SC SCH ×2 (07:35→21:39)
[2016-04-06] MEDS: ASPIRIN 81 MG ENTERIC TAB PO SCH (07:35)
[2016-04-06] MEDS: DOXYCYCLINE HYCLATE 100 MG TAB PO SCH ×2 (07:35→21:38)
[2016-04-06] MEDS: ALLOPURINOL 100 MG TAB PO SCH (07:35)
[2016-04-06] MEDS: TAMSULOSIN 0.4 MG CAP PO SCH (07:35)
[2016-04-06] MEDS: METOPROLOL TART 50 MG TAB PO SCH (07:36)
[2016-04-06] MEDS: ACETAMINOPHEN TAB 650MG DOSE (2X325MG) PO PRN ×2 (07:36→16:54)
[2016-04-06] MEDS: HEPARIN SOD (PORCINE) 5000 UNITS/ML VIAL SC SCH ×2 (08:31→21:38)
[2016-04-06] MEDS ORDERED: PRED20TA PO (08:48)
[2016-04-06] MEDS ORDERED: ALLO10TA PO (08:48)
[2016-04-06] MEDS ORDERED: DOXY10CA PO (08:48)
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
[2016-04-06 14:00] VITALS: BP 137/66
[2016-04-06 22:00] VITALS: BP 145/70
[2016-04-07 06:00] VITALS: BP 128/68
[2016-04-07 06:05] LABS: MEAN CORPUSCULAR HEMOGLOBIN 30.3 pg (27.0-33.0); MEAN CORPUSCULAR HGB CONC 33.5 g/dl (32.0-36.5); MEAN CORPUSCULAR VOLUME 90.5 fl (80.0-96.0); RED CELL DISTRIBUTION WIDTH 12.5 % (11.5-14.5); WHITE BLOOD COUNT 15.1 K/mm3 (4.0-10.0)
[2016-04-07 06:23] LABS: CALCIUM LEVEL 9.1 MG/DL (8.8-10.2); CREATININE FOR GFR 1.79 MG/DL (0.70-1.30); POTASSIUM SERUM 4.3 MEQ/L (3.5-5.1)
[2016-04-07] MEDS ORDERED: LEVEMIR (INSULIN DETEMIR) 1 UNITS/0.01ML SC SCH (09:00)
[2016-04-07] MEDS: predniSONE 20 MG TAB PO SCH (09:38)
[2016-04-07] MEDS: ASPIRIN 81 MG ENTERIC TAB PO SCH (09:38)
[2016-04-07] MEDS: TAMSULOSIN 0.4 MG CAP PO SCH (09:38)
[2016-04-07 09:39] VITALS: BP 128/72
[2016-04-07] MEDS: DOXYCYCLINE HYCLATE 100 MG TAB PO SCH (09:39)
[2016-04-07] MEDS: HumaLOG INSULIN (NovoLOG) PER UNIT SC SCH (09:39)
[2016-04-07] MEDS: ALLOPURINOL 100 MG TAB PO SCH (09:39)
[2016-04-07] MEDS: METOPROLOL TART 50 MG TAB PO SCH (09:39)
[2016-04-07] MEDS: HEPARIN SOD (PORCINE) 5000 UNITS/ML VIAL SC SCH (09:41)
--- NOTE | 2016-04-07 12:45 | DSES ---
DATE OF ADMISSION: 03/29/2016 DATE OF DISCHARGE: 04/07/2016 CONSULTANTS DURING THIS ADMISSION: Dr. Jacquelyn Wise, infectious disease specialist and Dr. Chucho Perdomo, orthopedic surgeon. PROCEDURES: 03/31/2016, aspiration of left third metacarpophalangeal (MCP) joint. PRIMARY DISCHARGE DIAGNOSES: 1. Lyme arthritis. 2. Gouty arthritis involving the metacarpophalangeal joint, wrist and elbow. 3. Insulin-dependent diabetes with diabetic neuropathy and onychomycosis, uncontrolled type 2 diabetes. 4. Chronic kidney disease at baseline. DISCHARGE MEDICATIONS: - allopurinol 100 mg daily - doxycycline 100 mg twice a day for 20 days - prednisone 20 mg as directed, tapering dose, 10 tablets - aspirin 81 mg daily - Lasix 20 daily - lisinopril 40 daily - metoprolol 50 daily - Onglyza 5 daily - Flomax 0.4 daily HOSPITAL COURSE: This is an 80-year-old male, left-handed, with progressive swelling, redness and pain at the MCP joint and elbow for the past 3 weeks, seen by primary care physician. Denies fever, chills. 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 He was admitted for possible cellulitis, gouty attack. Orthopedic surgeon, Dr. Perdomo, was consulted for aspiration of the left third metacarpal joint. He was found to be positive for Lyme serology, was treated with doxycycline. Arthrocentesis yielded uric acid crystals and patient was placed on prednisone for symptomatic relief and allopurinol. During the hospital stay, patient had significant difficulty with activities of daily living. Occupational therapy was consulted and felt that he was stable for discharge. Patient lives alone, has no other support system. Patient and family services (PFS) was consulted for Meals on Wheels. Neighbor was contacted to shovel snow at his home. Patient remained at his chronic kidney disease baseline. We avoided nephrotoxins, renally dosed all medications. He was found to have severe uncontrolled type 2 diabetes with steroid induced hyperglycemia, A1c of 9.2 and his insulin was titrated for better glycemic control. He was encouraged to have his diabetes better controlled by his primary care physician and to followup within a week of discharge. LABORATORY DATA ON DISCHARGE: White count 15, hemoglobin 12, hematocrit 38, platelet count 423. Sodium 139, potassium 4, chloride 105, bicarbonate 26, BUN 41, creatinine 1.79, glucose of 131, CRP of 1.3. His serology IgM for Lyme is present. Arthrocentesis positive for uric acid crystals. Microbiology: Gram-stain of the joint fluid shows no organisms, moderate WBCs. Two sets of blood cultures are negative. IMAGING STUDIES: Hand MRI shows subcutaneous edema, cellulitis over the dorsal hand and wrist. Base of his thumb with fluid collections. Small areas of genu synovitis or questionable developing abscess. No evidence of osteomyelitis or joint effusion. Vascular ultrasound, 03/29/2016: No evidence of deep venous thrombosis (DVT) in left upper extremity. TIME SPENT ON DISCHARGE: 30 minutes. [facility]
== END 2016-04-07 12:07 | disposition home or self-care (01) | DRG 554 ==
LOC: M ED 10:39 → M MSPAV 14:29 → M ED INP 14:30 → M MSPAV 17:03
PROVIDERS: ADMIT Internal Medicine; ATTEND General Practice
PROC: 0R9U3ZZ Drainage of Right Metacarpophalangeal Joint, Percutaneous Approach (ICD-10-PCS; principal; 2016-03-31)
DX: M10.9 Gout, unspecified (principal); A69.23 Arthritis due to Lyme disease; N17.9 Acute kidney failure, unspecified; E11.40 Type 2 diabetes mellitus with diabetic neuropathy, unspecified; N18.9 Chronic kidney disease, unspecified; Z79.899 Other long term (current) drug therapy; Z79.82 Long term (current) use of aspirin; B35.1 Tinea unguium; N40.0 Benign prostatic hyperplasia without lower urinary tract symptoms; I12.9 Hypertensive chronic kidney disease with stage 1 through stage 4 chronic kidney disease, or unspecified chronic kidney disease

== ENCOUNTER 2020-06-25 17:15 | Inpatient (IN) | payer MEDICARE ==
[~2020-06-25] VITALS: Ht 170.2 cm; Wt 89.6 kg
[~2020-06-25 17:15] MED LIST changes: -ASPI1TAB PO; +ASPI81TA26 PO; +DOXY100T2 PO; -DOXY10CA PO; +FLOM0.4C39 PO; -FLOM5CAP PO; -LASI20TA PO; +LASI20TA3 PO; +LISI40TA4 PO; -LISI40TAB PO; -METO50TA2 PO; +METO50TA7 PO
[2020-06-25 18:04] LABS: VENOUS HCO3 20.2 MEQ/L (23.0-27.0); VENOUS O2 SATURATION 85.1 % (60.0-80.0); VENOUS PARTIAL PRESSURE CO2 34.3 mmHg (38.0-50.0); VENOUS PARTIAL PRESSURE O2 48.2 mmHg (30.0-50.0); VENOUS PH 7.387 UNITS (7.330-7.430); VENOUS STANDARD HCO3 20.9 MEQ/L; VENOUS TOTAL CO2 21.2 MEQ/L (24.0-28.0)
[2020-06-25 18:08] LABS: BASO % 0.4 % (0.0-1.0); EOS # 0.1 10^3/uL (0.0-0.5); EOS % 0.6 % (0.0-3.0); HEMATOCRIT 41.5 % (42.0-52.0); HEMOGLOBIN 14.6 g/dl (13.5-17.5); LYMPH # 1.5 10^3/uL (1.5-5.0); LYMPH % 18.1 % (24.0-44.0); MEAN CORPUSCULAR HEMOGLOBIN 32.9 pg (27.0-33.0); MEAN CORPUSCULAR HGB CONC 35.2 g/dl (32.0-36.5); MEAN CORPUSCULAR VOLUME 93.5 fl (80.0-96.0); MONO # 0.8 10^3/uL (0.0-0.8); MONO % 9.7 % (2.0-8.0); NEUTROPHILS # 5.9 10^3/uL (1.5-8.5); NEUTROPHILS % 70.8 % (36.0-66.0); PLATELET COUNT, AUTOMATED 200 10^3/uL (150-450); RED BLOOD COUNT 4.44 10^6/uL (4.30-6.10); WHITE BLOOD COUNT 8.3 10^3/uL (4.0-10.0)
--- NOTE | 2020-06-25 18:14 | REP ---
INDICATION: Altered Mental Status. COMPARISON: None. TECHNIQUE: Portable FINDINGS: The technique utilized in obtaining the radiograph has magnified the cardiac silhouette and accentuated the interstitial markings. The superior mediastinal structures are midline. The cardiac silhouette is unremarkable in size, shape, and position. The diaphragmatic surfaces of the lungs are regular, and the costophrenic angles are clear. Mild but diffuse appearing patchy opacities are seen along the periphery of the right lung laterally. The patient is tilted and rotated to the left.. The imaged osseous structures are intact. IMPRESSION: Likely chronic fibrotic changes accentuated by technique as described above. Correlate clinically for possible asymmetric pulmonary edema. <Electronically signed by Skinny Salazar > 06/25/20 [id number]
--- NOTE | 2020-06-25 18:59 | REPVR ---
PROCEDURE INFORMATION: Exam: CT Head Without Contrast Exam date and time: 06/25/2020 6:32 PM Age: 84 years old Clinical indication: Altered mental status/memory loss TECHNIQUE: Imaging protocol: Computed tomography of the head without contrast. Radiation optimization: All CT scans at this facility use at least one of these dose optimization techniques: automated exposure control; mA and/or kV adjustment per patient size (includes targeted exams where dose is matched to clinical indication); or iterative reconstruction. COMPARISON: No relevant prior studies available. FINDINGS: Brain: Decreased attenuation of the supratentorial white matter is likely secondary to chronic microvascular ischemia. No acute intracranial hemorrhage. 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 Cerebral ventricles: Ventricular and subarachnoid spaces are age appropriate. Bones/joints: Unremarkable. No acute fracture. Paranasal sinuses: Small volume of nonspecific sphenoid sinus fluid. Mastoid air cells: Visualized mastoid air cells are well aerated. Vasculature: Intracranial vascular calcification. Soft tissues: Unremarkable. IMPRESSION: No acute intracranial abnormality. Electronically signed by: Jonathan Kumar On 06/25/2020 18:58:50 PM
[2020-06-25 19:49] LABS: AMPHETAMINES LEVEL URINE NEGATIVE (NEGATIVE); BARBITURATES URINE NEGATIVE (NEGATIVE); BENZODIAZEPINES URINE NEGATIVE (NEGATIVE); CANNABINOIDS URINE NEGATIVE (NEGATIVE); COCAINE METABOLITE URINE NEGATIVE (NEGATIVE); METHADONE URINE NEGATIVE (NEGATIVE); OPIATES URINE NEGATIVE (NEGATIVE); PHENCYCLIDINE URINE NEGATIVE (NEGATIVE)
[2020-06-25 19:50] LABS: OSMOLALITY SERUM 316 MOSM/KG (280-301)
[2020-06-25 20:11] LABS: ALBUMIN 3.2 GM/DL (3.2-5.2); ALT/SGPT 19 U/L (12-78); BILIRUBIN,DIRECT 0.2 MG/DL (0.0-0.2); BILIRUBIN,TOTAL 0.6 MG/DL (0.2-1.0); BLOOD UREA NITROGEN 23 MG/DL (7-18); CALCIUM LEVEL 8.9 MG/DL (8.8-10.2); CARBON DIOXIDE LEVEL 27 MEQ/L (21-32); CHLORIDE LEVEL 97 MEQ/L (98-107); CK-MB VALUE MASS 1.4 NG/ML (<3.6); CPK CREATINE PHOSPHOKINASE 51 U/L (39-308); CREATININE FOR GFR 1.94 MG/DL (0.70-1.30); ETHYL ALCOHOL (ETHANOL) < 0.003 % (0.000-0.010); GLOMERULAR FILTRATION RATE 35.2 (>35); GLUCOSE, FASTING 758 MG/DL (70-100); MB/CK RELATIVE INDEX 2.75 (< OR =4); POTASSIUM SERUM 4.9 MEQ/L (3.5-5.1); SODIUM LEVEL 131 MEQ/L (136-145); TOTAL PROTEIN 6.7 GM/DL (6.4-8.2); TROPONIN I < 0.02 NG/ML (< 0.10)
[2020-06-25 20:13] LABS: ACETONE/KETONE 4.47 MG/DL (<2.81)
[2020-06-25] MEDS ORDERED: HumuLIN R (REGULAR) INSULIN (NovoLIN R) **100U/ML** PER UNIT IV ONE (20:30)
[2020-06-25] MEDS ORDERED: THERTAB21 PO (20:47)
[2020-06-25] MEDS ORDERED: ALLO10TA PO (20:47)
[2020-06-25] MEDS ORDERED: RA T500C2 PO (20:47)
[2020-06-25] MEDS ORDERED: VITATAB73 PO (20:47)
[2020-06-25] MEDS ORDERED: LANTINJ4 SC (20:48)
[2020-06-25 21:34] LABS: RSV AMPLIFICATION NEGATIVE (NEGATIVE)
[2020-06-25] MEDS ORDERED: DEXTROSE 50% 50 ML SYRINGE IV PRN (22:15)
[2020-06-25] MEDS ORDERED: GLUCOSE 4GM CHEW TABLET PO PRN (22:15)
[2020-06-25] MEDS ORDERED: GLUCAGON INJ 1MG VIAL SC PRN (22:15)
[2020-06-25] MEDS ORDERED: NS 1,000 ML IV SCH (22:15)
--- NOTE | 2020-06-25 23:15 | ECGEPIP ---
[facility] - ED Test Date: 2020-06-25 Pat Name: YUVAL BLACKWELL Department: Room: - Gender: Male Material Spreader: ASPEN : [id number] Requested By: JONH Black Order Number: [id number] Reading MD: Francisco Danielson Measurements Intervals [place] Rate: 94 P: 66 HI: 182 QRS: -17 QRSD: 80 T: -24 QT: 344 QTc: 430 Interpretive Statements Sinus rhythm with first degree AV block POOR R WAVE PROGRESSION BASELINE ARTIFACT AFFECTS INTERPRETATION NO PRIORS FOR COMPARISON Electronically Signed on 06-25-2020 23:15:38 EDT by Francisco Danielson
[2020-06-26] VITALS (7 sets, daily range): BP systolic 94–134; BP diastolic 53–82
--- NOTE | 2020-06-26 00:05 | HPEPDOC ---
[facility] Medical History & Physical Date of Admission Jun 25, 2020 Date of Service: Jun 25, 2020 Attending Physician: TORI ARAUJO MD History and Physical CHIEF COMPLAINT: Altered mental status and hallucinations HISTORY OF PRESENT ILLNESS: Patient is an 84-year-old male who presented to the emergency department under the advisement of his process safety specialist as the patient had been acting strange. Patient apparently been acting strange of the past few days. Patient denies having any issues. Patient states he has not been taking his medication for about a month because he was "sick of it". Patient has a burn on his right foot that he sustained about a month ago when the neuropathic pain became so bad he tried to apply heat to it. According to the patient, he put water on the stove and then put his foot and since he couldn't feel it he kept his foot in and we noticed that it turned white and appeared injured. Patient has been going to the wound clinic since then. Patient states he saw airplane engines in his house in knew that something was wrong. In the emergency department, patient was found to have an elevated blood sugar. Patient's process safety specialist took the patient's blood sugar her to arrival in the glucometer read high so she called EMS. Patient's blood sugar was in the 700s when he arrived to the emergency department. Patient does not have any complaints in the emergency department right now. PAST MEDICAL HISTORY: 1. Type 2 diabetes. 2. BPH. 3. Hypertension. 4. Gout PAST SURGICAL HISTORY: 1. Denies any past surgical history SOCIAL HISTORY: Patient lives at home alone and denies smoking, drinking alcohol, or doing drugs FAMILY HISTORY: Patient denies any diseases that run in the family ALLERGIES: Please see below. REVIEW OF SYSTEMS: General: Patient denies fevers HEENT: Patient denies headaches Cardiovascular: Patient denies chest pain Respiratory: Patient denies shortness of breath, cough GI: Patient denies abdominal pain, nausea, vomiting, diarrhea : Patient denies increased frequency or pain with urination Extremities: Patient denies swelling or pain in extremities Neurological: Patient denies numbness or tingling in legs Skin: Patient denies any new rashes or lesions. Hematologic: Patient denies any easy bruising. Lymphatic: Patient denies any lumps lumps or bumps in neck, axilla, or groin HOME MEDICATIONS: Please see below. PHYSICAL EXAMINATION: VITAL SIGNS: Temperature 97.8, pulse 102, respiratory rate 18, blood pressure 123/86, pulse oximetry 97% on room air. General: Alert and oriented male patient who was sitting on the side of the stretcher when I walked into the room. Patient did not appear to be in any acute distress. HEENT: Normocephalic, atraumatic, moist mucous membranes. Neck: No lymphadenopathy or thyromegaly Cardiac: Regular rate and rhythm, no murmurs, normal S1, normal S2 Pulm: Clear to auscultation bilaterally. No wheezes, rhonchi, rales Abd: Nondistended, nontender to palpation, normal bowel sounds Ext: Trace edema in the right lower extremity. No edema in the left lower extremity. The forefoot was purple with some blisters on the dorsum of the forefoot. There did not appear to be in any surrounding erythema. LABORATORY DATA: See below. IMAGING: A chest x-ray performed on 06/25/2020 was reported to show likely c hronic fibrotic changes accentuated by technique as described above. Correlate clinically for possible asymmetric pulmonary edema. A CT of the head performed without contrast on 06/25/2020 is reported to show no acute intracranial abnormality. MICROBIOLOGY: Please see below. ASSESSMENT: Patient is an 84-year-old male who presents to the emergency department with some altered mental status was found to have hyperosmolar hyperglycemic syndrome. PLAN: 1. Hyperosmolar hyperglycemic syndrome. Patient has not been taking his insulin for the last month. Patient's blood sugars were in the 700s when he arrived. Patient received IV insulin which dropped his blood sugar in the 400s. I have given him what his normal basal dose of insulin will be placed on the sliding scale. Patient is drinking and I'll start him on IV fluids at this time for 1 liter. We will continue to monitor the patient's blood sugar every 4 hours. 2. Altered mental status. As the patient's blood sugar has improved the amol yeung's mental status has improved as well. Because the patient was hallucinating, brain MRI has been ordered and performed. We will continue to monitor the patient's mental status. 3. Type 2 diabetes. We will continue the treatment as per assessment #1. 4. Hypertension. We will continue to monitor the patient's blood pressure and continue his home medications 5. BPH. We will continue the patient's medications 6. Chronic kidney disease stage IIIB. Patient's creatinine is at baseline. We'll continue to monitor. 7. DVT prophylaxis: Heparin 8. CODE STATUS: Full code Disposition: Patient will be admitted into the progressive care unit for further monitoring. I do expect greater than 2 midnights stay as we work to get his blood sugar back to the normal range. Update: Patient's MRI was reported to show a small area that was a questionable acute or subacute infarct. Patient is starting on aspirin, Plavix, and statin therapy. Neurology consult to be placed by day team. Vital Signs Vital Signs Date Time Temp Pulse Resp B/P (MAP) Pulse Ox O2 Delivery O2 Flow Rate FiO2 06/25/20 21:46 102 18 97 Room Air 06/25/20 21:45 123/86 (98) 06/25/20 17:16 97.8 Laboratory Data Labs 24H Laboratory Tests 2 06/25/20 17:51: Immature Granulocyte % (Auto) 0.4, Neutrophils (%) (Auto) 70.8H, Lymphocytes (%) (Auto) 18.1L, Monocytes (%) (Auto) 9.7H, Eosinophils (%) (Auto) 0.6, Basophils (%) (Auto) 0.4, Neutrophils # (Auto) 5.9, Lymphocytes # (Auto) 1.5, Monocytes # (Auto) 0.8, Eosinophils # (Auto) 0.1, Basophils # (Auto) 0.0, Nucleated Red Blood Cells % (auto) 0.0, Blood Gas Bicarbonate Standard 20.9, Venous Blood pH 7.387, Venous Blood Partial Pressure CO2 34.3L, Venous Blood Partial Pressure O2 48.2, Venous Blood Total Carbon Dioxide 21.2L, Venous Blood HCO3 20.2L, Venous Blood Oxygen Saturation 85.1H, Venous Blood Base Excess -4.0L 06/25/20 19:13: Urine Color YELLOW, Urine Appearance CLEAR, Urine pH 5.0, Urine Specific [place] 1.023, Urine Protein NEGATIVE, Urine Glucose (UA) 3+H, Urine Ketones NEGATIVE, Urine Blood NEGATIVE, Urine Nitrite NEGATIVE, Urine Bilirubin NEGATIVE, Urine Urobilinogen 0.2, Urine Leukocyte Esterase NEGATIVE, Urine WBC (Auto) 0, Urine RBC (Auto) 1, Urine Hyaline Casts (Auto) 0, Urine Bacteria (Auto) NEGATIVE, Uri ne Squamous Epithelial Cells 0, Urine Sperm (Auto) , Anion Gap 7L, Glomerular Filtration Rate 35.2, Osmolality 316H, Calcium Level 8.9, Total Bilirubin 0.6, Direct Bilirubin 0.2, Aspartate Amino Transf (AST/SGOT) 15, Alanine Aminotransferase (ALT/SGPT) 19, Alkaline Phosphatase 113, Total Creatine Kinase 51, Creatine Kinase MB 1.4, Creatine Kinase MB Relative Index 2.75, Troponin I < 0.02, Total Protein 6.7, Albumin 3.2, Albumin/Globulin Ratio 0.9, Thyroid Stimulating Hormone (TSH) 3.480, Urine Opiates Screen NEGATIVE, Urine Methadone Screen NEGATIVE, Urine Barbiturates Screen NEGATIVE, Urine Phencyclidine Screen NEGATIVE, Urine Amphetamines Screen NEGATIVE, Urine Benzodiazepines Screen NEGAT MAY, Urine Cocaine Metabolite Screen NEGATIVE, Urine Cannabinoids Screen NEGATIVE, Ethyl Alcohol Level < 0.003, B-Hydroxybutyrate 4.47H 06/25/20 20:41: Coronavirus (COVID-19)(PCR) NEGATIVE, Influenza Type A (RT-PCR) NEGATIVE, Influenza Type B (RT-PCR) NEGATIVE, Respiratory Syncytial Virus (PCR) NEGATIVE 06/25/20 21:47: Bedside Glucose (Misc Panel) 469H CBC/BMP Laboratory Tests 06/25/20 17:51 06/25/20 19:13 Home Medications Scheduled Allopurinol (Allopurinol) 100 Mg Tablet, 300 MG PO QPM Furosemide (Lasix) 20 Mg Tab, 20 MG PO DAILY Insulin Glargine,Hum.rec.anlog (Lantus Solostar) 100 Unit/1 Ml Insuln.pen, 48 UNITS SC QAM Metoprolol Tartrate (Metoprolol Tartrate) 50 Mg Tab, 50 MG PO QPM Multivit,Calc,Mins/Iron/Folic (Thera-M Tablet) 1 Each Tablet, 1 TAB PO DAILY Tamsulosin HCl (Flomax) 0.4 Mg Cap, 0.8 MG PO DAILY Turmeric Root Extract (Turmeric) 500 Mg Capsule, 500 MG PO QHS Vitamin B Complex (Vitamin B Complex) 1 Each Tablet, 1 TAB PO DAILY Allergies Coded Allergies: No Known Allergies (Unverified , 03/29/16) A-FIB/CHADSVASC A-FIB History Current/History of A-Fib/PAF?: No GME ATTESTATION GME ATTESTATION My faculty preceptor for this patient encounter was physically present during the encounter and was fully available. All aspects of the patient interview, examination, medical decision making process, and medical care plan development were reviewed and approved by the faculty preceptor. The faculty preceptor is a marshall and concurs with the plan as stated in the body of this note and will attest to such by his/her cosignature. ATTENDING NOTE MRI brain showing possible acute/subacute infarct at R frontal lobe. Started ASA, plavix, statin. Order echo, carotid US. Check MRA brain wo contrast. Out of tpa window. Neuro consult. Rest as per resident note. NIGEL BEACH DO Jun 26, 2020 00:05 TORI ARAUJO MD Jun 26, 2020 04:54
--- NOTE | 2020-06-26 00:16 | REPVR ---
PROCEDURE INFORMATION: Exam: MR Head Without Contrast Exam date and time: 06/25/2020 10:44 PM Age: 84 years old Clinical indication: Altered mental status/memory loss; Confusion or disorientation; Patient HX: High blood sugar; Additional info: Visual hallucination, AMS TECHNIQUE: Imaging protocol: MR of the head without contrast. COMPARISON: CT Head without contrast 06/25/2020 6:32 PM FINDINGS: Patient motion. Age-related volume loss. Major vascular flow voids at the skull base are preserved. No extra-axial fluid collection. No hydrocephalus. Non-specific white matter gliosis, probable chronic microvascular ischemia. Chronic infarcts involving the left greater than right frontal lobes. No midline shift or intracranial mass effect. Tiny focus of increased diffusion-weighted signal at the right frontal lobe without convincing signal alteration on ADC map. Mild paranasal sinus disease. No mastoid effusion. IMPRESSION: 1. Patient motion. 2. Tiny focus of increased diffusion-weighted signal at the right frontal lobe without convincing signal alteration on ADC map, questionable for tiny acute/early subacute ischemic infarct. Electronically signed by: Jonathan Kumar On 06/26/2020 00:15:40 AM
[2020-06-26] MEDS: allopurinoL 300 MG TAB PO SCH ×2 (01:30→21:05)
[2020-06-26] MEDS: METOPROLOL TART 50 MG TAB PO SCH ×2 (01:30→21:05)
[2020-06-26] MEDS: HumaLOG INSULIN (NovoLOG) PER UNIT SC SCH ×5 (01:34→21:15)
[2020-06-26] MEDS: LEVEMIR (INSULIN DETEMIR) 1 UNITS/0.01ML SC SCH ×2 (01:34→09:55)
[2020-06-26] MEDS ORDERED: CLOPIDOGREL 75 MG TAB PO SCH (04:50)
[2020-06-26] MEDS ORDERED: ASPIRIN 325 MG TAB PO ONE (04:50)
[2020-06-26 05:06] LABS: HEMATOCRIT 42.4 % (42.0-52.0); HEMOGLOBIN 14.7 g/dl (13.5-17.5); MEAN CORPUSCULAR HEMOGLOBIN 32.5 pg (27.0-33.0); MEAN CORPUSCULAR HGB CONC 34.7 g/dl (32.0-36.5); MEAN CORPUSCULAR VOLUME 93.8 fl (80.0-96.0); PLATELET COUNT, AUTOMATED 247 10^3/uL (150-450); RED BLOOD COUNT 4.52 10^6/uL (4.30-6.10)
[2020-06-26] MEDS: HEPARIN SOD (PORCINE) 5000UNITS/ML 1ML VIAL/SYRINGE SC SCH ×3 (05:19→21:19)
[2020-06-26 05:51] LABS: CREATININE FOR GFR 1.75 MG/DL (0.70-1.30); GLOMERULAR FILTRATION RATE 39.6 (>35); MAGNESIUM LEVEL 2.2 MG/DL (1.8-2.4); POTASSIUM SERUM 3.8 MEQ/L (3.5-5.1)
[2020-06-26] MEDS ORDERED: ATOR1TAB19 PO (06:16)
[2020-06-26] MEDS ORDERED: AQUAOIN12 TOP (06:17)
--- NOTE | 2020-06-26 06:41 | REPVR ---
Arterial ultrasound of the extracerebral carotid and vertebral arteries Clinical indication: Alteration of consciousness; Transient alteration of awareness; Additional info: CVA Technique: Real-time ultrasound with sanchez scale, duplex Doppler, and color flow imaging was performed to evaluate the extracerebral carotid and vertebral arteries. No prior vascular imaging studies are available for correlation at the time of dictation. Findings: Prominent mixed echogenic plaque formation is identified in the carotid arteries along with intimal thickening . There is normal antegrade flow within the vertebral arteries bilaterally. The peak systolic velocity measurements within the right and left internal carotid arteries are 169 and 69 cm per second respectively. The recorded left internal carotid arterial measurements are believed to be spuriously reduce due to technical limitations. The right systolic velocity ratio is 2.76, while the left systolic velocity ratio is 1.03. When correlating with NASCET index criteria, the elevated velocity measurements in the right ICA would be indicative of low-grade stenosis on the order of 50-69%. Impression: 1. Prominent mixed echogenic plaque formation within the carotid arteries, with low-grade right ICA stenosis, on the order of 50-69%. 2. Normal antegradew flow within the vertebral arteries. Electronically signed by: Kun De León On 06/26/2020 06:41:25 AM
[2020-06-26] MEDS ORDERED: FUROSEMIDE 20 MG TAB PO SCH (09:00)
[2020-06-26] MEDS: MULTIVITAMINS/MINERALS THERAP 1 TAB PO SCH (09:55)
[2020-06-26] MEDS: TAMSULOSIN 0.4 MG CAP PO SCH (09:56)
--- NOTE | 2020-06-26 11:26 | IPNPDOC ---
Subjective Date Seen The patient was seen on 06/26/20. Subjective Chief Complaint/HPI Patient this morning says that he had behaved "stupidly" by stopping his medications so landed up in the hospital. Says he is going to go back on his medications and not do this kind of thing again. Does not have any complaints. No hallucinations in the hospital. Sitting by the side of the bed and having breakfast. Reports that his foot is looking better than before. Reports that he has no sensation in his feet. Objective Physical Examination General Exam: Positive: Alert, Cooperative, No Acute Distress Eye Exam: Positive: PERRLA, Conjunctiva & lids normal, EOMI; Negative: Sclera icteric ENT Exam: Positive: Atraumatic, Mucous membr. moist/pink, Pharynx Normal Neck Exam: Positive: Supple; Negative: JVD, thyromegaly Chest Exam: Positive: Clear to auscultation, Normal air movement Heart Exam: Positive: Rate Normal, Regular Rhythm, Normal S1, Normal S2; Negative: Murmurs, Rubs Abdomen Exam: Positive: Normal bowel sounds, Soft; Negative: Tenderness, Hepatospenomegaly Extremity Exam: Positive: Edema (trace); Negative: Clubbing, Cyanosis Skin Exam: Positive: Breakdown, Other skin issue (right forefoot with blisters, purple in color. ) Neuro Exam: Positive: Normal Speech, Strength at 5/5 X4 ext, Normal Tone Psych Exam: Positive: Memory Intact, Oriented x 3 Assessment /Plan Assessment This is an 84-year-old male with PMH of DM with neuropathy, BPH, HTN, Gout , burn on right feet who presented to the emergency department under the advisement of his friend who helps him as needed for hallucinating. The patient had apparently been acting strange for a few days. Patient states he has not been taking his medication for about a month because he was "sick of it". Patient has a burn on his right foot that he sustained about a month ago when the neuropathic pain became so bad he tried to apply heat to it. According to the patient, he put water on the stove and then put his foot and since he couldn't feel it he kept his foot in and he noticed that it turned white and appeared injured. Patient has been going to the wound clinic since then. Patient states yesterday he was hallucinating. He saw airplane engine propellers from his trailer window and knew that something was wrong. In the emergency department, patient was found to have an elevated blood sugar. Patient's patternmaker grader took the patient's blood sugar her to arrival in the glucometer read high so she called EMS. Patient's blood sugar was in the 700s when he arrived to the emergency department. Patient was admitted for hyperosmolar hyperglycemia. Hyperosmolar hyperglycemic syndrome. Uncontrolled DM due to medication non compliance. will continue on Levemir and lispro. Acute metabolic encephalopathy due to hyperglycemia and likely some amount of dehydration MRI did read small area that was a questionable acute or subacute infarct with diffuse chronic microvascular changes. his questionable infarct was not the cause of his confusion. started on ASA and statin Diabetic neuropathy will start on gabapentin. Hypertension. on metoprolol BPH. flomax Chronic kidney disease stage IIIB stable will hold lasix. Gout allopurinol DVT prophylaxis Heparin Plan/VTE VTE Prophylaxis Ordered?: Yes VS, I&O, 24H, Fishbone Vital Signs/I&O Vital Signs Date Time Temp Pulse Resp B/P (MAP) Pulse Ox O2 Delivery O2 Flow Rate FiO2 06/26/20 08:00 97.2 70 24 94/53 (67) 100 Room Air I&O- Last 24 Hours up to 6 AM 06/26/20 06:00 Intake Total 720 ml Output Total 100 ml Balance 620 ml Laboratory Data 24H LABS Laboratory Tests 2 06/25/20 17:51: Immature Granulocyte % (Auto) 0.4, Neutrophils (%) (Auto) 70.8H, Lymphocytes (%) (Auto) 18.1L, Monocytes (%) (Auto) 9.7H, Eosinophils (%) (Auto) 0.6, Basophils (%) (Auto) 0.4, Neutrophils # (Auto) 5.9, Lymphocytes # (Auto) 1.5, Monocytes # (Auto) 0.8, Eosinophils # (Auto) 0.1, Basophils # (Auto) 0.0, Nucleated Red Blood Cells % (auto) 0.0, Blood Gas Bicarbonate Standard 20.9, Venous Blood pH 7.387, Venous Blood Partial Pressure CO2 34.3L, Venous Blood Partial Pressure O2 48.2, Venous Blood Total Carbon Dioxide 21.2L, Venous Blood HCO3 20.2L, Venous Blood Oxygen Saturation 85.1H, Venous Blood Base Excess -4.0L 06/25/20 19:13: Urine Color YELLOW, Urine Appearance CLEAR, Urine pH 5.0, Urine Specific [place] 1.023, Urine Protein NEGATIVE, Urine Glucose (UA) 3+H, Urine Ketones NEGATIVE, Urine Blood NEGATIVE, Urine Nitrite NEGATIVE, Urine Bilirubin NEGATIVE, Urine Urobilinogen 0.2, Urine Leukocyte Esterase NEGATIVE, Urine WBC (Auto) 0, Urine RBC (Auto) 1, Urine Hyaline Casts (Auto) 0, Urine Bacteria (Auto) NEGATIVE, Urine Squamous Epithelial Cells 0, Urine Sperm (Auto) , Anion Gap 7L, Glomerular Filtration Rate 35.2, Osmolality 316H, Calcium Level 8.9, Total Bilirubin 0.6, Direct Bilirubin 0.2, Aspartate Amino Transf (AST/SGOT) 15, Alanine Aminotransferase (ALT/SGPT) 19, Alkaline Phosphatase 113, Total Creatine Kinase 51, Creatine Kinase MB 1.4, Creatine Kinase MB Relative Index 2.75, Troponin I < 0.02, Total Protein 6.7, Albumin 3.2, Albumin/Globulin Ratio 0.9, Thyroid Stim ulating Hormone (TSH) 3.480, Urine Opiates Screen NEGATIVE, Urine Methadone Screen NEGATIVE, Urine Barbiturates Screen NEGATIVE, Urine Phencyclidine Screen NEGATIVE, Urine Amphetamines Screen NEGATIVE, Urine Benzodiazepines Screen NEGATIVE, Urine Cocaine Metabolite Screen NEGATIVE, Urine Cannabinoids Screen NEGATIVE, Ethyl Alcohol Level < 0.003, B-Hydroxybutyrate 4.47H 06/25/20 20:41: Coronavirus (COVID-19)(PCR) NEGATIVE, Influenza Type A (RT-PCR) NEGATIVE, Influenza Type B (RT-PCR) NEGATIVE, Respiratory Syncytial Virus (PCR) NEGATIVE 06/25/20 21:47: Bedside Glucose (Misc Panel) 469H 06/26/20 01:25: Bedside Glucose (Misc Panel) 469H 06/26/20 04:49: Nucleated Red Blood Cells % (auto) 0.0, Anion Gap 8, Glomerular Filtration Rate 39.6, Calcium Level 9.0, Magnesium Level 2.2 CBC/BMP Laboratory Tests 06/25/20 17:51 06/25/20 19:13 06/26/20 04:49 NORY KAY MD Jun 26, 2020 11:26
--- NOTE | 2020-06-26 12:09 | REPVR ---
PROCEDURE INFORMATION: Exam: MRA Head Without Contrast; Arteriography Exam date and time: 06/26/2020 11:46 AM Age: 84 years old Clinical indication: Other: CVA TECHNIQUE: Imaging protocol: Magnetic resonance angiography head without contrast. Exam focused on the arteries. COMPARISON: 1. MRI-Brain without Contrast 06/25/2020 11:09 PM 2. US Duplex,carotid (complete) 06/26/2020 5:42:05 AM FINDINGS: ANTERIOR CIRCULATION: Right internal carotid artery: Intracranial segment is patent with no significant stenosis. No aneurysm. Right middle cerebral artery: No occlusion or significant stenosis. No aneurysm. Right anterior cerebral artery: No occlusion or significant stenosis. No aneurysm. Left internal carotid artery: The left internal carotid artery is moderately diminutive in size within the neck, carotid canal, cavernous sinus, and supraclinoid segment. This could be congenital or related to severe proximal stenosis or chronic dissection. There is severe stenosis involving the horizontal segment of the left cavernous carotid artery. Left middle cerebral artery: The left middle cerebral artery is mildly diminutive in size but patent. Left anterior cerebral artery: No occlusion or significant stenosis. No aneurysm. POSTERIOR CIRCULATION: Right vertebral artery: No occlusion or significant stenosis. No aneurysm. Left vertebral artery: No occlusion or significant stenosis. No aneurysm. Basilar artery: No occlusion or significant stenosis. No aneurysm. Right posterior cerebral artery: No occlusion or significant stenosis. No aneurysm. Left posterior cerebral artery: No occlusion or significant stenosis. No aneurysm. Brain: A chronic left frontal lobe infarct is noted. IMPRESSION: 1. Moderately diminutive left internal carotid artery as discussed above. 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 2. No large vessel occlusion Electronically signed by: Saul Johnson On 06/26/2020 12:09:30 PM
[2020-06-26] MEDS: GABAPENTIN 100 MG CAP PO SCH ×2 (12:26→21:01)
[2020-06-26] MEDS ORDERED: ATORVASTATIN 20 MG TAB PO SCH ×2 (21:00)
[2020-06-27] VITALS: BP 151/95
[2020-06-27] MEDS: ACETAMINOPHEN TAB 650MG DOSE (2X325MG) PO PRN ×3 (00:29→10:20)
[2020-06-27 03:32] VITALS: BP 157/73
[2020-06-27] MEDS ORDERED: GABAPENTIN 100 MG CAP PO ONE (04:20)
[2020-06-27] MEDS: HEPARIN SOD (PORCINE) 5000UNITS/ML 1ML VIAL/SYRINGE SC SCH ×2 (05:29→14:00)
[2020-06-27 06:00] VITALS: BP 150/72
[2020-06-27 07:16] LABS: HEMATOCRIT 39.9 % (42.0-52.0); HEMOGLOBIN 14.3 g/dl (13.5-17.5); MEAN CORPUSCULAR HEMOGLOBIN 33.3 pg (27.0-33.0); MEAN CORPUSCULAR HGB CONC 35.8 g/dl (32.0-36.5); MEAN CORPUSCULAR VOLUME 92.8 fl (80.0-96.0); PLATELET COUNT, AUTOMATED 201 10^3/uL (150-450); WHITE BLOOD COUNT 8.6 10^3/uL (4.0-10.0)
[2020-06-27] MEDS: HumaLOG INSULIN (NovoLOG) PER UNIT SC SCH ×3 (07:30→17:07)
[2020-06-27 07:38] LABS: BLOOD UREA NITROGEN 22 MG/DL (7-18); CALCIUM LEVEL 8.6 MG/DL (8.8-10.2); CARBON DIOXIDE LEVEL 25 MEQ/L (21-32); CHLORIDE LEVEL 108 MEQ/L (98-107); CHOLESTEROL LEVEL 165 MG/DL (<200); CREATININE FOR GFR 1.15 MG/DL (0.70-1.30); GLOMERULAR FILTRATION RATE > 60.0 (>35); GLUCOSE, FASTING 88 MG/DL (70-100); HDL CHOLESTEROL 44 MG/DL (>40); LDL CHOLESTEROL 69 MG/DL (<100); NON-HDL-C 121 MG/DL; SODIUM LEVEL 139 MEQ/L (136-145); TRIGLYCERIDES LEVEL 259 MG/DL (<150)
[2020-06-27] MEDS ORDERED: ASPIRIN 81MG ENTERIC TABLET PO SCH (09:00)
[2020-06-27] MEDS ORDERED: LEVEMIR (INSULIN DETEMIR) 1 UNITS/0.01ML SC SCH (09:00)
[2020-06-27 10:00] VITALS: BP 132/67
--- NOTE | 2020-06-27 10:16 | ECHO ---
DATE OF PROCEDURE: 06/26/2020 Age: 84 Gender: Male Height: 170 cm Weight: 93 kg REFERRING PHYSICIAN: Richard Byrne MD INDICATION: Acute stroke. MEASUREMENTS: 2D Measurements: Aortic root 3.6 cm Intraventricular septum 0.86 cm Posterior wall 1.04 cm Left ventricle diastole 4.9 cm Left atrium 3.7 cm Aortic annulus 2.7 cm Inferior vena cava 1.4 cm Doppler Measurements: No aortic stenosis No aortic regurgitation Aortic valve velocity 135 cm/s LVOT velocity 72.5 cm/s LVOT VTI 19.6 cm Trace mitral regurgitation No mitral stenosis Mitral E velocity 80.1 cm/s Mitral A velocity 115 cm/s Mitral deceleration time 209 msec No tricuspid regurgitation No pulmonic regurgitation MITRAL ANNULAR TISSUE DOPPLER: Not performed. DESCRIPTION: Rhythm was sinus. This was a technically difficult echocardiogram. Bubble study was not performed as the patient had difficulty tolerating the study. CONCLUSIONS: 1. Normal left ventricle internal dimensions and wall thickness. Normal regional LV wall motion and wall thickening. Normal LV systolic function. LVEF 60% by visual estimate. Grade 1 LV diastolic dysfunction (impaired relaxation filling pattern). 2. Moderate aortic valve sclerosis of a 3-cuspid aortic valve. No aortic stenosis or regurgitation. 3. Mild mitral annular calcification. Trace mitral regurgitation. 4. Normal right ventricle size and systolic function. 5. No pericardial effusion. 6. The patient could not tolerate the echocardiogram and consequently, the bubble study could not be performed. 7. Technically difficult echocardiogram. MTDD
[2020-06-27] MEDS: GABAPENTIN 100 MG CAP PO SCH (10:19)
[2020-06-27] MEDS: MULTIVITAMINS/MINERALS THERAP 1 TAB PO SCH (10:20)
[2020-06-27] MEDS: TAMSULOSIN 0.4 MG CAP PO SCH (10:20)
[2020-06-27] MEDS ORDERED: ASPI-551 PO (11:49)
[2020-06-27] MEDS ORDERED: GABA-1171 PO (11:49)
[2020-06-27] MEDS ORDERED: LASI20TA3 PO (11:53)
--- NOTE | 2020-06-27 12:04 | DS.PDOC ---
Discharge Summary General Date of Admission Jun 25, 2020 at 22:42 Date of Discharge 06/27/20 Discharge Summary PROCEDURES PERFORMED DURING STAY: [None]. DISCHARGE DIAGNOSES: Hyperosmolar hyperglycemia Acute metabolic encephalopathy Possible Acute lacunar infarct. Diabetes with diabetic neuropathy TERI Recent burn on right foot. SECONDARY DIAGNOSIS: HTN BPH Gout CKD COMPLICATIONS/CHIEF COMPLAINT: Hyperosmolar Hyperglycemic State. HOSPITAL COURSE: This is an 84-year-old male with PMH of DM with neuropathy, BPH, HTN, Gout , burn on right feet who presented to the emergency department under the advisement of his friend who helps him as needed for hallucinating. The patient had apparently been acting strange for a few days. Patient states he has not been taking his medication for about a month because he was "sick of it". Patient has a burn on his right foot that he sustained about a month ago when the neuropathic pain became so bad he tried to apply heat to it. According to the patient, he put water on the stove and then put his foot and since he couldn't feel it he kept his foot in and he noticed that it turned white and appeared injured. Patient has been going to the wound clinic since then. Patient states yesterday he was hallucinating. He saw airplane engine propellers from his trailer window and knew that something was wrong. In the emergency department, patient was found to have an elevated blood sugar. Patient's wide area network administrator took the patient's blood sugar her to arrival in the glucometer read high so she called EMS. Patient's blood sugar was in the 700s when he arrived to the emergency department. Patient was admitted for hyperosmolar hyperglycemia. Hyperosmolar hyperglycemic syndrome. Uncontrolled DM due to medication non compliance. will continue on Levemir and lispro. Acute metabolic encephalopathy due to hyperglycemia and likely some amount of dehydration MRI did read small area that was a questionable acute or subacute infarct with diffuse chronic microvascular changes. his questionable infarct was not the cause of his confusion. started on ASA and statin Diabetic neuropathy will start on gabapentin. Hypertension. on metoprolol BPH. flomax Chronic kidney disease Vs TERI creatinine better than admission lasix prn fluid retention. Gout allopurinol DISCHARGE MEDICATIONS: Please see below. ALLERGIES: Please see below. PHYSICAL EXAMINATION ON DISCHARGE: VITAL SIGNS: Please see below. General Exam: Positive: Alert, Cooperative, No Acute Distress Eye Exam: Positive: PERRLA, Conjunctiva & lids normal, EOMI; Negative: Sclera icteric ENT Exam: Positive: Atraumatic, Mucous membr. moist/pink, Pharynx Normal Neck Exam: Positive: Supple; Negative: JVD, thyromegaly Chest Exam: Positive: Clear to auscultation, Normal air movement Heart Exam: Positive: Rate Normal, Regular Rhythm, Normal S1, Normal S2; Negative: Murmurs, Rubs Abdomen Exam: Positive: Normal bowel sounds, Soft; Negative: Tenderness, Hepatospenomegaly Extremity Exam: Positive: Edema (trace); Negative: Clubbing, Cyanosis Skin Exam: Positive: Breakdown, Other skin issue (right forefoot with blisters, purple in color. ) Neuro Exam: Positive: Normal Speech, Strength at 5/5 X4 ext, Normal Tone Psych Exam: Positive: Memory Intact, Oriented x 3 LABORATORY DATA: Please see below. IMAGING: Brain MRI: Patient motion. Age-related volume loss. Major vascular flow voids at the skull base are preserved. No extra-axial fluid collection. No hydrocephalus. Non-specific white matter gliosis, probable chronic microvascular ischemia. Chronic infarcts involving the left greater than right frontal lobes. No midline shift or intracranial mass effect. Tiny focus of increased diffusion-weighted signal at the right frontal lobe without convincing signal alteration on ADC map. Mild paranasal sinus disease. No mastoid effusion. IMPRESSION: 1. Patient motion. 2. Tiny focus of increased diffusion-weighted signal at the right frontal lobe without convincing signal alteration on ADC map, questionable for tiny acute/early subacute ischemic infarct. MRA: FINDINGS: ANTERIOR CIRCULATION: Right internal carotid artery: Intracranial segment is patent with no significant stenosis. No aneurysm. Right middle cerebral artery: No occlusion or significant stenosis. No aneurysm. Right anterior cerebral artery: No occlusion or significant stenosis. No aneurysm. Left internal carotid artery: The left internal carotid artery is moderately diminutive in size within the neck, carotid canal, cavernous sinus, and supraclinoid segment. This could be congenital or related to severe proximal stenosis or chronic dissection. There is severe stenosis involving the horizontal segment of the left cavernous carotid artery. Left middle cerebral artery: The left middle cerebral artery is mildly diminutive in size but patent. Left anterior cerebral artery: No occlusion or significant stenosis. No aneurysm. POSTERIOR CIRCULATION: Right vertebral artery: No occlusion or significant stenosis. No aneurysm. Left vertebral artery: No occlusion or significant stenosis. No aneurysm. Basilar artery: No occlusion or significant stenosis. No aneurysm. Right posterior cerebral artery: No occlusion or significant stenosis. No aneurysm. Left posterior cerebral artery: No occlusion or significant stenosis. No aneurysm. Brain: A chronic left frontal lobe infarct is noted. IMPRESSION: 1. Moderately diminutive left internal carotid artery as discussed above. 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 2. No large vessel occlusion Carotid doppler: 1. Prominent mixed echogenic plaque formation within the carotid arteries, with low-grade right ICA stenosis, on the order of 50-69%. 2. Normal antegrade flow within the vertebral arteries. ACTIVITY: [As tolerated]. DIET: Consistent carb DISCHARGE PLAN: Home with services DISCHARGE INSTRUCTIONS: Follow up with PMD in 1 week DISCHARGE CONDITION: [Stable]. TIME SPENT ON DISCHARGE: 35 minutes. Vital Signs/I&Os Vital Signs Date Time Temp Pulse Resp B/P (MAP) Pulse Ox O2 Delivery O2 Flow Rate FiO2 06/27/20 10:00 96.5 74 16 132/67 (88) 100 Room Air I&O- Last 24 Hours up to 6 AM 06/27/20 06:00 Intake Total 990 ml Output Total 950 ml Balance 40 ml Laboratory Data Labs 24H Laboratory Tests 2 06/26/20 11:56: Bedside Glucose (Misc Panel) 288H 06/26/20 17:01: Bedside Glucose (Misc Panel) 198H 06/26/20 20:59: Bedside Glucose (Misc Panel) 287H 06/27/20 06:51: Nucleated Red Blood Cells % (auto) 0.0, Anion Gap 6L, Glomerular Filtration Rate > 60.0, Calcium Level 8.6L, Triglycerides Level 259H, Total Cholesterol 165, LDL Cholesterol 69, Non-HDL Cholesterol (LDL + VLDL) 121, Total HDL Cholesterol 44, Cholesterol/HDL Ratio 3.750 06/27/20 11:42: Bedside Glucose (Misc Panel) 264H CBC/BMP Laboratory Tests 06/27/20 06:51 FSBS Laboratory Tests Test 06/26/20 11:56 06/26/20 17:01 06/26/20 20:59 06/27/20 11:42 Range/Units Bedside Glucose (Misc Panel) 288 198 287 264 83-110 MG/DL Discharge Medications Scheduled Allopurinol (Allopurinol) 100 Mg Tablet, 300 MG PO QPM, (Reported) Aspirin (Aspirin EC) 81 Mg Tablet.dr, 81 MG PO DAILY Atorvastatin Calcium (Atorvastatin Calcium) 10 Mg Tablet, 10 MG PO QHS, (Reported) Furosemide (Lasix) 20 Mg Tab, 20 MG PO DAILYPRN for leg swelling Gabapentin (Gabapentin) 100 Mg Capsule, 100 MG PO BID Insulin Glargine,Hum.rec.anlog (Lantus Solostar) 100 Unit/1 Ml Insuln.pen, 48 UNITS SC QAM, (Reported) Metoprolol Tartrate (Metoprolol Tartrate) 50 Mg Tab, 50 MG PO QPM, (Reported) Multivit,Calc,Mins/Iron/Folic (Thera-M Tablet) 1 Each Tablet, 1 TAB PO DAILY, (Reported) Tamsulosin HCl (Flomax) 0.4 Mg Cap, 0.8 MG PO DAILY, (Reported) Turmeric Root Extract (Turmeric) 500 Mg Capsule, 500 MG PO QHS, (Reported) Vitamin B Complex (Vitamin B Complex) 1 Each Tablet, 1 TAB PO DAILY, (Reported) Scheduled PRN Petrolatum,White (Aquaphor with Natural Healing) 50 Gm Oint...g., 1 DOSE TOP ASDIRECTED PRN for DRY SKIN, (Reported) Allergies Coded Allergies: No Known Allergies (Unverified , 03/29/16) NORY KAY MD Jun 27, 2020 12:04
[2020-06-27 14:00] VITALS: BP 136/69
== END 2020-06-27 18:44 | disposition home health service (06) | DRG 637 ==
LOC: M ED 17:15 → ENRESERV 21:29 → M ED INP 22:42 → M ICU 06-26 00:51 → M MSPAV 06-27 03:32
PROVIDERS: ADMIT Family Medicine; ATTEND Internal Medicine Nephrology
DX: E11.00 Type 2 diabetes mellitus with hyperosmolarity without nonketotic hyperglycemic-hyperosmolar coma (NKHHC) (principal); I63.9 Cerebral infarction, unspecified; G93.41 Metabolic encephalopathy; N17.9 Acute kidney failure, unspecified; I12.9 Hypertensive chronic kidney disease with stage 1 through stage 4 chronic kidney disease, or unspecified chronic kidney disease; N40.0 Benign prostatic hyperplasia without lower urinary tract symptoms; N18.32 Chronic kidney disease, stage 3b; E11.40 Type 2 diabetes mellitus with diabetic neuropathy, unspecified; M10.9 Gout, unspecified; Z79.82 Long term (current) use of aspirin; Z79.899 Other long term (current) drug therapy; Z79.4 Long term (current) use of insulin; Z91.14 Patient's other noncompliance with medication regimen

== ENCOUNTER 2020-08-09 10:29 | Emergency (ER) | payer MEDICARE ==
[~2020-08-09] VITALS: Ht 170.2 cm; Wt 99.4 kg
[~2020-08-09 10:29] MED LIST changes: +AQUAOIN12 TOP; +ASPI-551 PO; +ATOR1TAB19 PO; +GABA-1171 PO; +LANTINJ4 SC; +RA T500C2 PO; +THERTAB21 PO; +VITATAB73 PO
[2020-08-09] MEDS ORDERED: FURO20TA2 PO (10:48)
[2020-08-09] MEDS ORDERED: TOUJ300I2 SC (10:50)
[2020-08-09] MEDS ORDERED: NS 1,000 ML IV ONE (11:00)
[2020-08-09] MEDS ORDERED: HumuLIN R (REGULAR) INSULIN (NovoLIN R) **100U/ML** PER UNIT IV ONE (12:10)
[2020-08-09 15:30] VITALS: BP 113/59
== END 2020-08-09 15:45 | disposition home or self-care (01) ==
LOC: M ED 10:29
DX: E11.65 Type 2 diabetes mellitus with hyperglycemia (principal); I12.9 Hypertensive chronic kidney disease with stage 1 through stage 4 chronic kidney disease, or unspecified chronic kidney disease; N18.9 Chronic kidney disease, unspecified; M10.9 Gout, unspecified; Z79.899 Other long term (current) drug therapy; Z79.4 Long term (current) use of insulin